=== PATIENT | female | born 1930 | race Caucasian/White ===

== ENCOUNTER → 2017-03-15 | Outpatient (CLI) | payer MEDICARE ==
--- NOTE | 2017-03-17 12:41 | EEG PRO FEE REPORT ---
EEG INTERPRETATION PATIENT NAME: KRYSTLE ESTRADA ROOM#: ORDER#: [id number] DATE OF STUDY: 03/15/2017 : 1930 REFERRING MD: ISAAK CUMMINGS M.D. DIAGNOSIS: Syncope REPORT The background activity consists of 6 to 7 Hz theta for the most part of medium to high voltage. No clear amplitude asymmetry is noted, or any further focal slowing is seen. Considering the stated age of 87, this record is felt to be within normal limits. No paroxysmal discharges are noted. IMPRESSION Normal EEG for age. INTERPRETING PHYSICIAN: SONIA MUNGUIA M.D. /: VELVET TT: [id number] ID: [id number] /: [id number] TD: [id number] JOB: [id number] cc:Paco ARTHUR M.D. >
== END ==
LOC: NEURO 07:58
PROVIDERS: ATTEND Family Medicine
DX: R55 Syncope and collapse (principal)
CPT/HCPCS: 95819

== ENCOUNTER 2018-12-30 14:46 | Inpatient (IN) | payer MEDICARE ==
--- NOTE | 2018-12-30 14:58 | ER Document Report ---
ED Medical Screen (RME) - General Chief Complaint: Dizziness Stated Complaint: DIZZY Time Seen by Provider: 12/30/18 14:56 Primary Care Provider: ISAAK CUMMINGS MD [Primary Care Provider] - Follow up as needed Mode of Arrival: Wheelchair Information source: Patient, Relative TRAVEL OUTSIDE OF THE [place] 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 Denies: Hx Pacemaker - Immunizations Hx Diphtheria, Pertussis, Tetanus Vaccination: Yes Physical Exam - Vital signs Vitals: Temp Pulse Resp BP Pulse Ox 98.0 F 90 17 141/55 H 98 12/30/18 14:51 12/30/18 14:51 12/30/18 14:51 12/30/18 14:51 12/30/18 14:51 Course - Vital Signs Vital signs: Temp Pulse Resp BP Pulse Ox 98.0 F 90 17 141/55 H 98 12/30/18 14:51 12/30/18 14:51 12/30/18 14:51 12/30/18 14:51 12/30/18 14:51 Doctor's Discharge - Discharge Referrals: ISAAK CUMMINGS MD [Primary Care Provider] - Follow up as needed
--- NOTE | 2018-12-30 15:20 | RADIOLOGY REPORT (SQ) ---
EXAM DESCRIPTION: CHEST 2 VIEWS COMPLETED DATE/TIME: 12/30/2018 3:08 pm REASON FOR STUDY: weakness COMPARISON: 11/04/2012 EXAM PARAMETERS: NUMBER OF VIEWS: two views TECHNIQUE: Digital Frontal and Lateral radiographic views of the chest acquired. RADIATION DOSE: NA LIMITATIONS: none FINDINGS: LUNGS AND PLEURA: No opacities, masses or pneumothorax. No pleural effusion. MEDIASTINUM AND HILAR STRUCTURES: No masses or contour abnormalities. HEART AND VASCULAR STRUCTURES: Heart normal size. No evidence for failure. BONES: Chronic scoliosis. HARDWARE: None in the chest. OTHER: No other significant finding. IMPRESSION: NO ACUTE RADIOGRAPHIC FINDING IN THE CHEST. TECHNICAL DOCUMENTATION: JOB ID: [id number] [employer]- All Rights Reserved Reading location - IP/workstation name: [email or web address]
[2018-12-30 16:08] LABS: ABSOLUTE BASOPHILS # (AUTO) 0.1 10^3/uL (0.0-0.2); ABSOLUTE EOSINOPHILS # (AUTO) 0.1 10^3/uL (0.0-0.6); ABSOLUTE LYMPHOCYTES (AUTO) 2.2 10^3/uL (0.5-4.7); ABSOLUTE MONOCYTES (AUTO) 0.6 10^3/uL (0.1-1.4); ABSOLUTE NEUT (AUTO) 4.1 10^3/uL (1.7-8.2); EOSINOPHILS % (AUTO) 1.3 % (0-6); HEMATOCRIT 37.4 % (36.0-47.0); HEMOGLOBIN 12.9 g/dL (12.0-15.5); LYMPHOCYTES % (AUTO) 31.5 % (13-45); MEAN CORPUSCULAR HGB CONC 34.4 g/dL (32.0-36.0); MEAN CORPUSCULAR VOLUME 81 fl (80-97); MONOCYTES % (AUTO) 8.1 % (3-13); PLATELET COUNT 206 10^3/uL (150-450); RED CELL DISTRIBUTION WIDTH 14.5 % (11.5-14.0); SEGMENTED NEUTROPHILS % (AUTO) 58.1 % (42-78); TOTAL CELLS COUNTED % (AUTO) 100 %; WHITE BLOOD COUNT 7.1 10^3/uL (4.0-10.5)
[2018-12-30 16:18] LABS: ALANINE AMINOTRANSFERASE 18 U/L (9-52); ALBUMIN 3.9 g/dL (3.5-5.0); ALKALINE PHOSPHATASE 62 U/L (38-126); ANION GAP 9 (5-19); ASPARTATE AMINO TRANSFERASE 21 U/L (14-36); BILIRUBIN,DIRECT 0.2 mg/dL (0.0-0.4); BILIRUBIN,TOTAL 0.5 mg/dL (0.2-1.3); BLOOD UREA NITROGEN 26 mg/dL (7-20); CALCIUM 10.3 mg/dL (8.4-10.2); CARBON DIOXIDE 27 mmol/L (22-30); CHLORIDE 95 mmol/L (98-107); CREATINE KINASE 68 U/L (30-135); GLUCOSE 84 mg/dL (75-110); SODIUM 131.2 mmol/L (137-145); TOTAL PROTEIN 6.4 g/dL (6.3-8.2)
--- NOTE | 2018-12-30 16:26 | ER Document Report ---
ED General - General Chief Complaint: Dizziness Stated Complaint: DIZZY Time Seen by Provider: 12/30/18 14:56 Primary Care Provider: ISAAK ROSADO MD [Primary Care Provider] - Follow up as needed Mode of Arrival: Wheelchair Notes: Very pleasant 88-year-old female with hypertension presents to emergency department for syncopal episode after standing up out of bed. It was unwitnessed. She states she got out of bed and next thing she knew she woke up on the floor. She states that this is never happened to her before. Patient is not on any anticoagulation. Patient denies any recent illness. Patient denies fever, chills, shortness of breath or chest pain, nausea, vomiting, diarrhea, currently denies lightheadedness or dizziness, denies headache, denies any extremity weakness or paresthesias, denies any urinary symptoms. TRAVEL OUTSIDE OF THE [place] IN LAST 30 DAYS: No - Related Data Allergies/Adverse Reactions: Penicillins Allergy (Verified 12/30/18 14:50) Past Medical History - General Information source: Patient, Relative - Social History Smoking Status: Never Smoker Chew tobacco use (# tins/day): No Frequency of alcohol use: None Drug Abuse: None Family History: Reviewed & Not Pertinent Patient has suicidal ideation: No Patient has homicidal ideation: No - Past Medical History Cardiac Medical History: Reports: Hx Hypertension Pulmonary Medical History: Denies: Hx Tuberculosis Renal/ Medical History: Denies: Hx Peritoneal Dialysis Musculoskeletal Medical History: Reports Hx Arthritis Past Surgical History: Reports: Hx Appendectomy, Hx Tonsillectomy. Denies: Hx Pacemaker - Immunizations Hx Diphtheria, Pertussis, Tetanus Vaccination: Yes Review of Systems - Review of Systems Constitutional: See HPI EENT: No symptoms reported, See HPI Cardiovascular: See HPI Respiratory: See HPI Gastrointestinal: See HPI Genitourinary: See HPI Female Genitourinary: No symptoms reported Musculoskeletal: No symptoms reported Skin: No symptoms reported Hematologic/Lymphatic: No symptoms reported Neurological/Psychological: No symptoms reported Physical Exam - Vital signs Vitals: Temp Pulse Resp BP Pulse Ox 98.0 F 90 17 141/55 H 98 12/30/18 14:51 12/30/18 14:51 12/30/18 14:51 12/30/18 14:51 12/30/18 14:51 - Notes Notes: PHYSICAL EXAMINATION: Reviewed vital signs and charting by RN GENERAL: Alert, interacts well. No acute distress. HEAD: Normocephalic, atraumatic. EYES: Pupils equal, round, and reactive to light. Extraocular movements intact. ENT: Oral mucosa moist, tongue midline. NECK: Full range of motion. Supple. Trachea midline. LUNGS: Clear to auscultation bilaterally, no wheezes, rales, or rhonchi. No respiratory distress. HEART: Regular rate and rhythm. No murmur ABDOMEN: soft, non-tender. Non-distended. Bowel sounds present in all 4 quadrants. no McBurney's point tenderness, no Zamudio sign. EXTREMITIES: Moves all 4 extremities spontaneously. No edema, No cyanosis. Strength 5/5 x 4 extremities, blade boner strength 5/5, 5/5 dorsal and plantar flexion. NEUROLOGICAL: Alert and oriented x3. Normal speech. No focal neuro deficits, normal neurologic exam. PSYCH: Normal affect, normal mood. SKIN: Warm, dry, normal turgor. No rashes or lesions noted. Course - Re-evaluation Re-evalutation: 12/30/18 16:25 Very well-appearing 88-year-old female with syncopal episode. Workup initiated. CT head without contrast added. 12/30/18 17:44 CT negative for acute stroke or intracranial bleed. Lab work unremarkable. Discussed case with Dr. Nguyen. 12/30/18 18:25 Because patient is 88 years old and had an unwitnessed syncopal episode at her house, and has been seen in [address] Ashton recommended to call Dr. Rosado. I did called him and presented the patient to him. He stated that he would have her follow-u in the office on Tuesday. Discussed patient again with Dr. Nguyen and concern was voiced due to patient's age and risk for . Dr. Nguyen then called him and explained his concerns and my concerns. Dr. Rosado agreed to admit patient for full admission on telemetry. 12/30/18 18:04 12/30/18 18:14 - Vital Signs Vital signs: Temp Pulse Resp BP Pulse Ox 98.0 F 90 14 138/57 H 99 12/30/18 14:51 12/30/18 14:51 12/30/18 16:26 12/30/18 16:26 12/30/18 16:26 - Laboratory Result Diagrams: 12/30/18 15:35 12/30/18 15:35 Laboratory results interpreted by me: 12/30/18 12/30/18 12/30/18 15:35 15:35 17:50 RDW 14.5 H Sodium 131.2 L Chloride 95 L BUN 26 H Creatinine 1.41 H Est GFR ( Amer) 43 L Est GFR (Non-Af Amer) 35 L Calcium 10.3 H Urine Blood SMALL H Ur Leukocyte Esterase LARGE H Discharge - Discharge Clinical Impression: Dehydration, Hyponatremia Syncope Qualifiers: Syncope type: unspecified Qualified Code(s): R55 - Syncope and collapse Urinary tract infection Qualifiers: Urinary tract infection type: acute cystitis Hematuria presence: with hematuria Qualified Code(s): N30.01 - Acute cystitis with hematuria Condition: Good Disposition: ADMITTED INPATIENT Admitting Provider: Ashlee Unit Admitted: Telemetry Additional Instructions: You were seen today after an episode of passing out. Your EKG here is normal. At this time, we do not feel that your episode of passing out was from any life- threatening cause. Please drink plenty of fluids over the next several days. Return to emergency department if you have any further episodes of syncope, headache, weakness, numbness, chest pain, or shortness of breath. Please follow up closely with your primary care physician. Referrals: ISAAK ROSADO MD [Primary Care Provider] - Follow up as needed
[2018-12-30 16:29] LABS: CREATINE KINASE MB 1.68 ng/mL (<4.55)
[2018-12-30 16:31] LABS: TROPONIN I < 0.012 ng/mL
--- NOTE | 2018-12-30 16:31 | EKG REPORT ---
SEVERITY:- NORMAL ECG - SINUS RHYTHM : Confirmed by: Moni Alcantara 30-Dec-2018 16:31:35
--- NOTE | 2018-12-30 17:33 | RADIOLOGY REPORT (SQ) ---
EXAM DESCRIPTION: CT HEAD WITHOUT COMPLETED DATE/TIME: 12/30/2018 5:21 pm REASON FOR STUDY: syncope COMPARISON: 04/23/2010. TECHNIQUE: Axial images acquired through the brain without intravenous contrast. Images reviewed wi th bone, brain and subdural windows. Additional sagittal and coronal reconstructions were generated. Images stored on PACS. All CT scanners at this facility use dose modulation, iterative reconstruction, and/or weight based d osing when appropriate to reduce radiation dose to as low as reasonably achievable (ALARA). [facility]: Dose Right [facility]: CareDose [facility]: Dose Right [facility]: Teradose 4D [facility]: Smart [place] [employer] [place] RADIATION DOSE: CT Rad equipment meets quality standard of care and radiation dose reduction techniq ues were employed. CTDIvol: 53.2 mGy. DLP: 991 mGy-cm.mGy. LIMITATIONS: None. FINDINGS: VENTRICLES: Prominent. CEREBRUM: No masses. No hemorrhage. No midline shift. Areas of low density in the white matter mos t likely due to chronic micro-vascular ischemic change. No evidence for acute infarction. CEREBELLUM: No masses. No hemorrhage. No alteration of density. No evidence for acute infarction. EXTRAAXIAL SPACES: Age-related involutional change. No fluid collections. No masses. ORBITS AND GLOBE: No intra- or extraconal masses. Normal contour of globe without masses. CALVARIUM: No fracture. PARANASAL SINUSES: No fluid or mucosal thickening. SOFT TISSUES: No mass or hematoma. OTHER: No other significant finding. IMPRESSION: CHRONIC CHANGES OF ATROPHY AND MICROVASCULAR ISCHEMIA. NO ACUTE PROCESS. EVIDENCE OF ACUTE STROKE: NO. TECHNICAL DOCUMENTATION: JOB ID: [id number] Quality ID # [id number]: Final reports with documentation of one or more dose reduction techniques (e.g., Au tomated exposure control, adjustment of the mA and/or kV according to patient size, use of iterative reconstruction technique) 2010 [employer]- All Rights Reserved Reading location - IP/workstation name: [email or web address]
[2018-12-30] MEDS ORDERED: NORMAL SALINE 1000 ML 500 ML IV ONE (18:03)
[2018-12-30 18:09] LABS: APPEARANCE,URINE CLOUDY; BILIRUBIN,URINE NEGATIVE (NEGATIVE); COLOR,URINE YELLOW; GLUCOSE, URINE NEGATIVE (NEGATIVE); KETONES,URINE NEGATIVE (NEGATIVE); LEUKOCYTE ESTERASE,URINE LARGE (NEGATIVE); NITRITE,URINE NEGATIVE (NEGATIVE); PROTEIN,URINE NEGATIVE (NEGATIVE); URINE SPECIFIC GRAVITY 1.009; UROBILINOGEN,URINE NEGATIVE mg/dL (<2.0)
[2018-12-30] MEDS ORDERED: CEFTRIAXONE 1 GM/D5W RTU 1 GM/50 ML RTUPB IV ONE (19:17)
[2018-12-30] MEDS: 1/2 NORMAL SALINE 1,000 ML IV PRN (20:24)
[2018-12-31 06:06] LABS: ANION GAP 6 (5-19); BLOOD UREA NITROGEN 23 mg/dL (7-20); CALCIUM 9.8 mg/dL (8.4-10.2); CARBON DIOXIDE 28 mmol/L (22-30); CHLORIDE 100 mmol/L (98-107); GLUCOSE 78 mg/dL (75-110); POTASSIUM 4.7 mmol/L (3.6-5.0); SODIUM 134.1 mmol/L (137-145)
--- NOTE | 2018-12-31 07:21 | PDOC H&P ---
History of Present Illness Admission Date/PCP: 12/30/18 18:41 ISAAK CUMMINGS MD Patient complains of: passing out History of Present Illness: KRYSTLE ESTRADA is a 88 year old female on lisinoprilHCT for bp and b12 for sensor ataxia. She got out of bed and woke up on the floor. Past Medical History Cardiac Medical History: Reports: Hypertension Pulmonary Medical History: Denies: Tuberculosis EENT Medical History: Reports: None Neurological Medical History: Reports: Other - peripheral neuropathy Endocrine Medical History: Reports: None Renal/ Medical History: Reports: None Malignancy Medical History: Reports: None GI Medical History: Reports: None Musculoskeltal Medical History: Reports: Arthritis Skin Medical History: Reports: None Psychiatric Medical History: Reports: None Traumatic Medical History: Reports: None Hematology: Reports: Anemia Infectious Medical History: Reports: None Past Surgical History Past Surgical History: Reports: Appendectomy, Tonsillectomy Denies: Pacemaker Social History Information Source: Dr. Helms Lives with: Family Smoking Status: Never Smoker Frequency of Alcohol Use: None Hx Recreational Drug Use: No Drugs: None Hx Prescription Drug Abuse: No - Advance Directive Resuscitation Status: Full Code Family History Family History: Reviewed & Not Pertinent Parental Family History Reviewed: Yes Children Family History Reviewed: Yes Sibling(s) Family History Reviewed.: Yes Medication/Allergy Home Medications: Mcgregor-3/Dha/Epa/Fish Oil [Fish Oil 1,000 mg Softgel] 1 each PO DAILY 11/04/12 Cyanocobalamin (Vitamin B-12) [Vitamin B-12 1000 Mcg Tablet] 1 tab PO DAILY 12/31/18 Lisinopril/Hydrochlorothiazide [Lisinopril-Hctz 20-25 mg Tab] 1 DAILY 12/31/18 Allergies/Adverse Reactions: Penicillins Allergy (Verified 12/30/18 14:50) Review of Systems ROS unobtainable: Due to mental status Constitutional: ABSENT: fever(s), headache(s), weight loss Nose, Mouth, and Throat: ABSENT: sore throat Cardiovascular: ABSENT: chest pain, dyspnea on exertion, orthropnea Respiratory: ABSENT: cough Gastrointestinal: ABSENT: abdominal pain, constipation, diarrhea, hematochezia, vomiting Genitourinary: ABSENT: dysuria, hematuria Integumentary: ABSENT: rash Neurological: PRESENT: lack of coordination Physical Exam Vital Signs: Temp Pulse Resp BP Pulse Ox 97.7 F 111 H 20 171/53 H 100 12/31/18 00:00 12/31/18 02:00 12/31/18 00:00 12/31/18 00:00 12/31/18 00:00 Intake & Output 12/29/18 12/30/18 12/31/18 07:59 07:59 07:59 Intake Total 550 Balance 550 Weight 128 lb 11.999 oz General appearance: PRESENT: no acute distress Mouth exam: PRESENT: dry mucosa, neck supple Neck exam: ABSENT: lymphadenopathy, tenderness, thyromegaly, tracheal deviation Respiratory exam: PRESENT: clear to auscultation archie Cardiovascular exam: ABSENT: diastolic murmur, irregular rhythm, systolic murmur GI/Abdominal exam: ABSENT: mass, organolmegaly, tenderness Extremities exam: PRESENT: pedal edema - trace Neurological exam: ABSENT: oriented to time, oriented to situation Psychiatric exam: PRESENT: appropriate affect Results Laboratory Results: 12/30/18 15:35 Abnormal - 24 hr 12/30/18 12/30/18 12/30/18 15:35 15:35 17:50 RDW 14.5 H Sodium 131.2 L Chloride 95 L BUN 26 H Creatinine 1.41 H Est GFR ( Amer) 43 L Est GFR (Non-Af Amer) 35 L Calcium 10.3 H Urine Blood SMALL H Ur Leukocyte Esterase LARGE H 12/31/18 05:03 RDW Sodium 134.1 L Chloride BUN 23 H Creatinine Est GFR ( Amer) 52 L Est GFR (Non-Af Amer) 43 L Calcium Urine Blood Ur Leukocyte Esterase Impressions: Chest X-Ray 12/30/18 14:56 IMPRESSION: NO ACUTE RADIOGRAPHIC FINDING IN THE CHEST. Head CT 12/30/18 16:15 IMPRESSION: CHRONIC CHANGES OF ATROPHY AND MICROVASCULAR ISCHEMIA. NO ACUTE PROCESS. EVIDENCE OF ACUTE STROKE: NO. Assessment & Plan - Diagnosis (1) Syncope Qualifiers: Syncope type: unspecified Qualified Code(s): R55 - Syncope and collapse (2) Urinary tract infection Qualifiers: Urinary tract infection type: acute cystitis Hematuria presence: with hematuria Qualified Code(s): N30.01 - Acute cystitis with hematuria Is this a current diagnosis for this admission?: Yes Plan: already on ceftri (3) Acute kidney injury Is this a current diagnosis for this admission?: Yes Plan: ivf (4) B12 neuropathy Is this a current diagnosis for this admission?: Yes Plan: level & IF antibody - Inpatient Certification Based on my medical assessment, after consideration of the patient's comorbidities, presenting symptoms, or acuity I expect that the services needed warrant INPATIENT care.: Yes I certify that my determination is in accordance with my understanding of Medicare's requirements for reasonable and necessary INPATIENT services [42 CFR 412.3e].: Yes Medical Necessity: Need Close Monitoring Due to Risk of Patient Decompensation, Need For IV Fluids, Need For Continuous Telemetry Monitoring, Need for IV Antibiotics, Risk of Complication if Not Cared For in Hospital, Risk of Diagnosis Which Will Require Inpatient Eval/Care/Monitoring
[2018-12-31] MEDS: ENOXAPARIN SODIUM INJ 30 MG/0.3 ML DISP.SYRIN SUBCUT SCH (09:18)
[2018-12-31] MEDS: CEFTRIAXONE 1 GM/D5W RTU 1 GM/50 ML RTUPB IV SCH (09:18)
[2018-12-31] MEDS: 1/2 NORMAL SALINE 1,000 ML IV PRN (15:19)
[2019-01-01] MEDS: 1/2 NORMAL SALINE 1,000 ML IV PRN ×3 (01:05→21:03)
[2019-01-01 06:38] LABS: ANION GAP 5 (5-19); BLOOD UREA NITROGEN 17 mg/dL (7-20); CALCIUM 9.4 mg/dL (8.4-10.2); CARBON DIOXIDE 28 mmol/L (22-30); CHLORIDE 101 mmol/L (98-107); GLUCOSE 81 mg/dL (75-110); POTASSIUM 4.8 mmol/L (3.6-5.0); SODIUM 133.7 mmol/L (137-145)
--- NOTE | 2019-01-01 07:33 | PDOC PROGRESS REPORT ---
Subjective Progress Note for:: 01/01/19 Subjective:: no complaints Reason For Visit: UTI,ARAM,SYNCOPE Physical Exam Vital Signs: Temp Pulse Resp BP Pulse Ox 98.6 F 79 18 127/54 H 97 01/01/19 03:43 01/01/19 03:43 01/01/19 03:43 01/01/19 03:43 01/01/19 03:43 Intake & Output 12/30/18 12/31/18 01/01/19 07:59 07:59 07:59 Intake Total 1750 1735 Output Total 1000 2100 Balance 750 -365 Weight 128 lb 11.999 oz 130 lb 4.691 oz General appearance: PRESENT: no acute distress Respiratory exam: PRESENT: clear to auscultation archie Cardiovascular exam: ABSENT: diastolic murmur, irregular rhythm, systolic murmur GI/Abdominal exam: ABSENT: mass, organolmegaly, tenderness Extremities exam: PRESENT: pedal edema - trace Neurological exam: PRESENT: oriented to situation Psychiatric exam: PRESENT: appropriate affect Results Laboratory Results: 12/30/18 15:35 01/01/19 05:03 12/31/18 01/01/19 05:03 05:03 Sodium 133.7 L Potassium 4.8 Chloride 101 Carbon Dioxide 28 Anion Gap 5 BUN 17 Creatinine 1.18 Est GFR ( Amer) 53 L Est GFR (Non-Af Amer) 43 L Glucose 81 Calcium 9.4 Vitamin B12 > 1000.0 H 12/30/18 12/30/18 15:35 15:35 Creatine Kinase 68 CK-MB (CK-2) 1.68 Troponin I < 0.012 Impressions: Chest X-Ray 12/30/18 14:56 IMPRESSION: NO ACUTE RADIOGRAPHIC FINDING IN THE CHEST. Head CT 12/30/18 16:15 IMPRESSION: CHRONIC CHANGES OF ATROPHY AND MICROVASCULAR ISCHEMIA. NO ACUTE PROCESS. EVIDENCE OF ACUTE STROKE: NO. Assessment & Plan - Diagnosis (1) Syncope Qualifiers: Syncope type: unspecified Qualified Code(s): R55 - Syncope and collapse Is this a current diagnosis for this admission?: Yes Plan: no recurrance or dysrrhythmia on monitor. BP low enough off lisinoprilHCT. (2) Urinary tract infection Qualifiers: Urinary tract infection type: acute cystitis Hematuria presence: with hematuria Qualified Code(s): N30.01 - Acute cystitis with hematuria Is this a current diagnosis for this admission?: Yes Plan: d3 ceftri (3) Acute kidney injury Is this a current diagnosis for this admission?: Yes Plan: bun17 [id number]. Cr was lower before. (4) B12 neuropathy Is this a current diagnosis for this admission?: Yes - Inpatient Certification Medical Necessity: Significant Comorbidiites Make Outpatient Treatment Too Risky, Need Close Monitoring Due to Risk of Patient Decompensation, Need For IV Fluids, Need For Continuous Telemetry Monitoring, Need for IV Antibiotics, Risk of Complication if Not Cared For in Hospital, Risk of Diagnosis Which Will Require Inpatient Eval/Care/Monitoring
[2019-01-01] MEDS: ENOXAPARIN SODIUM INJ 30 MG/0.3 ML DISP.SYRIN SUBCUT SCH (09:18)
[2019-01-01] MEDS: CEFTRIAXONE 1 GM/D5W RTU 1 GM/50 ML RTUPB IV SCH (09:18)
[2019-01-01 20:36] LABS: ABSOLUTE BASOPHILS # (AUTO) 0.1 10^3/uL (0.0-0.2); ABSOLUTE EOSINOPHILS # (AUTO) 0.1 10^3/uL (0.0-0.6); ABSOLUTE MONOCYTES (AUTO) 0.7 10^3/uL (0.1-1.4); BASOPHILS % (AUTO) 0.9 % (0-2); EOSINOPHILS % (AUTO) 0.7 % (0-6); HEMATOCRIT 31.6 % (36.0-47.0); LYMPHOCYTES % (AUTO) 25.8 % (13-45); MEAN CORPUSCULAR HEMOGLOBIN 28.1 pg (27.0-33.4); MEAN CORPUSCULAR HGB CONC 34.6 g/dL (32.0-36.0); MEAN CORPUSCULAR VOLUME 81 fl (80-97); MONOCYTES % (AUTO) 8.8 % (3-13); PLATELET COUNT 157 10^3/uL (150-450); SEGMENTED NEUTROPHILS % (AUTO) 63.8 % (42-78); TOTAL CELLS COUNTED % (AUTO) 100 %; WHITE BLOOD COUNT 7.8 10^3/uL (4.0-10.5)
[2019-01-02 05:49] LABS: ANION GAP 6 (5-19); BLOOD UREA NITROGEN 15 mg/dL (7-20); CALCIUM 9.7 mg/dL (8.4-10.2); CARBON DIOXIDE 24 mmol/L (22-30); CHLORIDE 104 mmol/L (98-107); GLUCOSE 87 mg/dL (75-110); POTASSIUM 4.4 mmol/L (3.6-5.0); SODIUM 134.3 mmol/L (137-145)
--- NOTE | 2019-01-02 08:30 | PDOC PROGRESS REPORT ---
Subjective Progress Note for:: 01/02/19 Subjective:: wants home. Rectal bleeding yesterday. Reason For Visit: UTI,ARAM,SYNCOPE Physical Exam Vital Signs: Temp Pulse Resp BP Pulse Ox 98.6 F 93 17 152/58 H 94 01/01/19 23:50 01/02/19 02:00 01/01/19 20:00 01/01/19 23:50 01/01/19 23:50 Intake & Output 01/01/19 01/02/19 01/03/19 07:59 07:59 07:59 Intake Total 1735 3627 Output Total 2100 2700 Balance -365 927 Weight 130 lb 4.691 oz 131 lb 9.855 oz General appearance: PRESENT: no acute distress Respiratory exam: PRESENT: clear to auscultation archie Cardiovascular exam: PRESENT: diastolic murmur. ABSENT: irregular rhythm, systolic murmur Murmur grade: 1 GI/Abdominal exam: ABSENT: organolmegaly, tenderness Extremities exam: ABSENT: pedal edema Neurological exam: PRESENT: alert Psychiatric exam: PRESENT: anxious Results Laboratory Results: 01/01/19 20:15 01/02/19 05:04 01/01/19 01/02/19 20:15 05:04 WBC 7.8 RBC 3.90 Hgb 11.0 L Hct 31.6 L MCV 81 MCH 28.1 MCHC 34.6 RDW 14.0 Plt Count 157 Seg Neutrophils % 63.8 Lymphocytes % 25.8 Monocytes % 8.8 Eosinophils % 0.7 Basophils % 0.9 Absolute Neutrophils 5.0 Absolute Lymphocytes 2.0 Absolute Monocytes 0.7 Absolute Eosinophils 0.1 Absolute Basophils 0.1 Sodium 134.3 L Potassium 4.4 Chloride 104 Carbon Dioxide 24 Anion Gap 6 BUN 15 Creatinine 1.08 Est GFR ( Amer) 58 L Est GFR (Non-Af Amer) 48 L Glucose 87 Calcium 9.7 Impressions: Chest X-Ray 12/30/18 14:56 IMPRESSION: NO ACUTE RADIOGRAPHIC FINDING IN THE CHEST. Head CT 12/30/18 16:15 IMPRESSION: CHRONIC CHANGES OF ATROPHY AND MICROVASCULAR ISCHEMIA. NO ACUTE PROCESS. EVIDENCE OF ACUTE STROKE: NO. Assessment & Plan - Diagnosis (1) Bleeding per rectum Is this a current diagnosis for this admission?: Yes Plan: hct down 5. Consulted Dr Rodríguez for possible Cscop. (2) Urinary tract infection Qualifiers: Urinary tract infection type: acute cystitis Hematuria presence: with hematuria Qualified Code(s): N30.01 - Acute cystitis with hematuria Is this a current diagnosis for this admission?: Yes Plan: d4 ceftri (3) Syncope Qualifiers: Syncope type: unspecified Qualified Code(s): R55 - Syncope and collapse Is this a current diagnosis for this admission?: Yes Plan: sinus with pvc (4) Acute kidney injury Is this a current diagnosis for this admission?: Yes Plan: creatinine down (5) B12 neuropathy Is this a current diagnosis for this admission?: Yes Plan: level good - Inpatient Certification Medical Necessity: Significant Comorbidiites Make Outpatient Treatment Too Risky, Need Close Monitoring Due to Risk of Patient Decompensation, Need For IV Fluids, Need For Continuous Telemetry Monitoring, Risk of Complication if Not Cared For in Hospital, Risk of Diagnosis Which Will Require Inpatient Eval/Care/Monitoring
[2019-01-02] MEDS: CEFTRIAXONE 1 GM/D5W RTU 1 GM/50 ML RTUPB IV SCH (10:37)
[2019-01-02] MEDS: 1/2 NORMAL SALINE 1,000 ML IV PRN ×2 (10:37→20:20)
--- NOTE | 2019-01-02 13:15 | PDOC CONSULTATION ---
Consultation Consult Date: 01/02/19 Attending physician:: MILES CANTU Consult reason:: rectal bleeding History of Present Illness Admission Date/PCP: 12/30/18 18:41 ISAAK CUMMINGS MD History of Present Illness: KRYSTLE ESTRADA is a 88 year old female I have been asked to see this patient for rectal bleeding patient admitted for a possible neuropathy patient cannot remember having a colonoscopy in the past patient had rectal bleeding that happened in the hospital no previous episodes patient will need a colonoscopy done patient willing to have done denies any chest pain or SOB Past Medical History Cardiac Medical History: Reports: Hypertension Pulmonary Medical History: Denies: Tuberculosis EENT Medical History: Reports: None Neurological Medical History: Reports: Other - peripheral neuropathy Endocrine Medical History: Reports: None Renal/ Medical History: Reports: None Malignancy Medical History: Reports: None GI Medical History: Reports: None Musculoskeltal Medical History: Reports: Arthritis Skin Medical History: Reports: None Psychiatric Medical History: Reports: None Traumatic Medical History: Reports: None Hematology: Reports: Anemia Infectious Medical History: Reports: None Past Surgical History Past Surgical History: Reports: Appendectomy, Tonsillectomy Denies: Pacemaker Social History Lives with: Family Smoking Status: Never Smoker Frequency of Alcohol Use: None Hx Recreational Drug Use: No Drugs: None Hx Prescription Drug Abuse: No - Advance Directive Resuscitation Status: Full Code Family History Family History: Reviewed & Not Pertinent Parental Family History Reviewed: Yes Children Family History Reviewed: Unknown Sibling(s) Family History Reviewed.: Unknown Medication/Allergy Home Medications: [place]-3/Dha/Epa/Fish Oil [Fish Oil 1,000 mg Softgel] 1 each PO DAILY 11/04/12 Cyanocobalamin (Vitamin B-12) [Vitamin B-12 1000 Mcg Tablet] 1 tab PO DAILY 12/31/18 Lisinopril/Hydrochlorothiazide [Lisinopril-Hctz 20-25 mg Tab] 1 tab PO DAILY 12/31/18 Allergies/Adverse Reactions: Penicillins Allergy (Verified 12/30/18 14:50) Review of Systems Constitutional: ABSENT: fever(s), headache(s), night sweats, weakness Eyes: ABSENT: visual disturbances Ears: ABSENT: hearing changes Nose, Mouth, and Throat: ABSENT: mouth pain, sore throat Cardiovascular: ABSENT: edema, orthropnea Respiratory: ABSENT: dyspnea, hemoptysis Gastrointestinal: PRESENT: hematochezia. ABSENT: nausea, vomiting Genitourinary: ABSENT: dysuria, hematuria Musculoskeletal: ABSENT: deformity, joint swelling Neurological: ABSENT: syncope, tingling, tremor(s), vertigo Endocrine: ABSENT: polydipsia, polyphagia, polyuria Hematologic/Lymphatic: ABSENT: easy bruising Physical Exam Vital Signs: Temp Pulse Resp BP Pulse Ox 98.6 F 93 17 152/58 H 94 01/01/19 23:50 01/02/19 02:00 01/01/19 20:00 01/01/19 23:50 01/01/19 23:50 Intake & Output 01/01/19 01/02/19 01/03/19 06:59 06:59 06:59 Intake Total 1735 3627 1050 Output Total 2100 1750 950 Balance -365 1877 100 Weight 59.1 kg 59.7 kg General appearance: PRESENT: no acute distress, well-developed, well-nourished Head exam: PRESENT: atraumatic, normocephalic Eye exam: PRESENT: EOMI, PERRLA. ABSENT: nystagmus, periorbital swelling, scler al icterus Mouth exam: PRESENT: moist, neck supple Throat exam: ABSENT: tonsillar exudate, tonsillogmegaly Neck exam: ABSENT: meningismus, tenderness, thyromegaly Respiratory exam: PRESENT: symmetrical, unlabored. ABSENT: tachypnea, wheezes Cardiovascular exam: PRESENT: +S1, +S2 GI/Abdominal exam: PRESENT: soft. ABSENT: rebound, rigid, tenderness Extremities exam: ABSENT: joint swelling Neurological exam: PRESENT: oriented to time, oriented to situation, CN II-XII grossly intact Focused psych exam: ABSENT: restlessness Skin exam: PRESENT: normal color. ABSENT: mottled, pallor, urticaria, vesicles Results Laboratory Results: 01/01/19 20:15 01/02/19 05:04 01/01/19 01/02/19 20:15 05:04 WBC 7.8 RBC 3.90 Hgb 11.0 L Hct 31.6 L MCV 81 MCH 28.1 MCHC 34.6 RDW 14.0 Plt Count 157 Seg Neutrophils % 63.8 Lymphocytes % 25.8 Monocytes % 8.8 Eosinophils % 0.7 Basophils % 0.9 Absolute Neutrophils 5.0 Absolute Lymphocytes 2.0 Absolute Monocytes 0.7 Absolute Eosinophils 0.1 Absolute Basophils 0.1 Sodium 134.3 L Potassium 4.4 Chloride 104 Carbon Dioxide 24 Anion Gap 6 BUN 15 Creatinine 1.08 Est GFR ( Amer) 58 L Est GFR (Non-Af Amer) 48 L Glucose 87 Calcium 9.7 12/30/18 12/30/18 15:35 15:35 Creatine Kinase 68 CK-MB (CK-2) 1.68 Troponin I < 0.012 Impressions: Chest X-Ray 12/30/18 14:56 IMPRESSION: NO ACUTE RADIOGRAPHIC FINDING IN THE CHEST. Head CT 12/30/18 16:15 IMPRESSION: CHRONIC CHANGES OF ATROPHY AND MICROVASCULAR ISCHEMIA. NO ACUTE PROCESS. EVIDENCE OF ACUTE STROKE: NO. Assessment & Plan - Diagnosis (1) Bleeding per rectum Is this a current diagnosis for this admission?: Yes Plan: patient will need a colonoscopy Risks, benefits and alternatives are explained to the patient in detail further recommendations to follow she is willing to schedule - Time Time Spent: 50 to 70 Minutes
[2019-01-02] MEDS ORDERED: GLUCAGON,HUMAN RECOMB 1 MG INJ SUBCUT PRN (19:45)
[2019-01-02] MEDS ORDERED: DEXTROSE 50%-WATER 25 GM/50 ML DISP.SYRIN IV PRN ×2 (19:45)
[2019-01-02] MEDS ORDERED: DEXTROSE 40% GEL 15 GM TUBE PO PRN ×2 (19:45)
[2019-01-02] MEDS ORDERED: PEG 3350/NA SULF,BICARB,CL/KCL 4000 ML PO ONE (20:30)
[2019-01-03] MEDS: 1/2 NORMAL SALINE 1,000 ML IV PRN ×2 (05:53→09:01)
[2019-01-03 07:14] LABS: INTRINSIC FACTOR ANTIBODY 1.9 AU/mL (0.0-1.1)
--- NOTE | 2019-01-03 08:01 | PDOC PROGRESS REPORT ---
Subjective Progress Note for:: 01/03/19 Subjective:: ok Reason For Visit: UTI,ARAM,SYNCOPE Physical Exam Vital Signs: Temp Pulse Resp BP Pulse Ox 98.7 F 76 19 147/55 H 96 01/03/19 00:00 01/03/19 02:00 01/03/19 00:00 01/03/19 00:00 01/03/19 00:00 Intake & Output 01/01/19 01/02/19 01/03/19 07:59 07:59 07:59 Intake Total 1735 4627 3827 Output Total 2100 2700 3400 Balance -365 1927 427 Weight 130 lb 4.691 oz 131 lb 9.855 oz 131 lb 13.383 oz General appearance: PRESENT: no acute distress Respiratory exam: PRESENT: clear to auscultation archie Cardiovascular exam: PRESENT: diastolic murmur. ABSENT: irregular rhythm, systolic murmur Murmur grade: 1 GI/Abdominal exam: ABSENT: mass, organolmegaly, tenderness Extremities exam: ABSENT: pedal edema Neurological exam: PRESENT: oriented to situation Psychiatric exam: PRESENT: appropriate affect Results Laboratory Results: 01/01/19 20:15 01/02/19 05:04 Impressions: Chest X-Ray 12/30/18 14:56 IMPRESSION: NO ACUTE RADIOGRAPHIC FINDING IN THE CHEST. Head CT 12/30/18 16:15 IMPRESSION: CHRONIC CHANGES OF ATROPHY AND MICROVASCULAR ISCHEMIA. NO ACUTE PROCESS. EVIDENCE OF ACUTE STROKE: NO. Assessment & Plan - Diagnosis (1) Bleeding per rectum Is this a current diagnosis for this admission?: Yes Plan: colonoscopy today. ? home in am. (2) Urinary tract infection Qualifiers: Urinary tract infection type: acute cystitis Hematuria presence: with hematuria Qualified Code(s): N30.01 - Acute cystitis with hematuria Is this a current diagnosis for this admission?: Yes (3) Syncope Qualifiers: Syncope type: unspecified Qualified Code(s): R55 - Syncope and collapse Is this a current diagnosis for this admission?: Yes (4) Acute kidney injury Is this a current diagnosis for this admission?: Yes (5) B12 neuropathy Is this a current diagnosis for this admission?: Yes - Inpatient Certification Medical Necessity: Significant Comorbidiites Make Outpatient Treatment Too Risky, Need Close Monitoring Due to Risk of Patient Decompensation, Need For IV Fluids, Need For Continuous Telemetry Monitoring, Risk of Complication if Not Cared For in Hospital, Risk of Diagnosis Which Will Require Inpatient Eval/Care/Monitoring
[2019-01-03] MEDS: CEFTRIAXONE 1 GM/D5W RTU 1 GM/50 ML RTUPB IV SCH (09:01)
[2019-01-03] MEDS ORDERED: PROPOFOL INJ 200 MG/20 ML VIAL IV ONE (09:20)
[2019-01-03] MEDS ORDERED: FENTANYL CITRATE INJ/PF 100 MCG/2 ML AMPUL IV PRN ×3 (09:58)
[2019-01-03] MEDS ORDERED: MEPERIDINE HCL/PF INJ 25 MG/1 ML DISP.SYRIN IV PRN (09:58)
[2019-01-03] MEDS ORDERED: PROMETHAZINE HCL INJ 25 MG/1 ML VIAL IV PRN (09:58)
[2019-01-03] MEDS ORDERED: DIPHENHYDRAMINE HCL 50 MG/ML VIAL IV PRN (09:58)
[2019-01-03] MEDS ORDERED: ONDANSETRON HCL INJ/PF 4 MG/2 ML SDV IV PRN (09:58)
--- NOTE | 2019-01-03 10:15 | Operative Report ---
Operative Report DATE OF SURGERY: 01/03/19 Operative Report: The risks, benefits and alternatives of the procedure including the risk of bleeding, perforation requiring surgery have been explained to the patient in detail and informed consent has been obtained. Patient is brought back to the operating room and placed in the left, lateral decubital position. Timeout was called. Propofol medication is administered. Rectal examination is done which did not reveal any masses tears or fissures. An Olympus videoscope was introduced into the patient's rectum. The scope was then carefully advanced all the way to the cecum. Cecum was identified by the usual anatomical landmarks including the ileocecal valve as well as the appendiceal office. Photodocumentation was obtained. Scope was then sequentially pulled back via the various segments of the colon including the ascending colon, hepatic flexure, transverse colon, splenic flexure, descending colon and finally into the rectosigmoid portions of the colon. Retroflexion maneuver was performed. PREOPERATIVE DIAGNOSIS: Rectal bleeding POSTOPERATIVE DIAGNOSIS: Random biopsies taken on the right side of the colon rule out collagenous colitis. Incidental polyp noted in the sigmoid area removed via snare polypectomy and retrieved. Diverticulosis without any evidence of recent bleeding or diverticulitis. Internal hemorrhoids likely the causative factor for the patient's rectal bleeding OPERATION: Colonoscopy with snare polypectomy. Colonoscopy with biopsy SURGEON: MILES CANTU ANESTHESIA: LMAC TISSUE REMOVED OR ALTERED: As noted above COMPLICATIONS: None. ESTIMATED BLOOD LOSS: None. INTRAOPERATIVE FINDINGS: As noted above. PROCEDURE: Patient tolerated the procedure well. No immediate postprocedure complications are noted. Patient is sent back to her room in good condition. Resume regular diet Resume previous activity level Follow-up on biopsies Okay to be discharged from the GI standpoint
[2019-01-04] MEDS: 1/2 NORMAL SALINE 1,000 ML IV PRN (03:46)
--- NOTE | 2019-01-04 08:52 | PDOC DISCHARGE SUMMARY ---
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 She got out of bed and woke up on the floor. Hospital Course Hospital Course: Syncope did not recur. LisinoprilHCT was stopped. Bp was good enough. Monitor was ok. I heard new grade 1 diastolic murmur. She had 5d ceftriaxone for pyuria. No culture was done before 1st dose. Creatinine came down. Rectal bleed was traced to hemorroid and polyp was removed. B12>1000 on 2.5mg qd in spite of antiIF+. Physical Exam Vital Signs: Temp Pulse Resp BP Pulse Ox 98.7 F 88 17 157/62 H 96 01/04/19 03:31 01/04/19 03:31 01/04/19 03:31 01/04/19 03:31 01/04/19 03:31 Intake & Output 01/02/19 01/03/19 01/04/19 07:59 07:59 07:59 Intake Total 4690 9097 2473 Output Total 2700 3400 1300 Balance 4999 054 0214 Weight 131 lb 9.855 oz 131 lb 13.383 oz 130 lb 15.273 oz General appearance: PRESENT: no acute distress Respiratory exam: PRESENT: clear to auscultation archie Cardiovascular exam: PRESENT: diastolic murmur. ABSENT: irregular rhythm, systolic murmur Murmur grade: 1 GI/Abdominal exam: ABSENT: mass, organolmegaly, tenderness Extremities exam: ABSENT: pedal edema Neurological exam: PRESENT: oriented to situation Psychiatric exam: PRESENT: appropriate affect Results Laboratory Results: Labs- Last Values WBC 7.8 10^3/uL (4.0-10.5) 01/01/19 20:15 RBC 3.90 10^6/uL (3.72-5.28) 01/01/19 20:15 Hgb 11.0 g/dL (12.0-15.5) L 01/01/19 20:15 Hct 31.6 % (36.0-47.0) L 01/01/19 20:15 MCV 81 fl (80-97) 01/01/19 20:15 MCH 28.1 pg (27.0-33.4) 01/01/19 20:15 MCHC 34.6 g/dL (32.0-36.0) 01/01/19 20:15 RDW 14.0 % (11.5-14.0) 01/01/19 20:15 Plt Count 157 10^3/uL (150-450) 01/01/19 20:15 Seg Neutrophils % 63.8 % (42-78) 01/01/19 20:15 Lymphocytes % 25.8 % (13-45) 01/01/19 20:15 Monocytes % 8.8 % (3-13) 01/01/19 20:15 Eosinophils % 0.7 % (0-6) 01/01/19 20:15 Basophils % 0.9 % (0-2) 01/01/19 20:15 Absolute Neutrophils 5.0 10^3/uL (1.7-8.2) 01/01/19 20:15 Absolute Lymphocytes 2.0 10^3/uL (0.5-4.7) 01/01/19 20:15 Absolute Monocytes 0.7 10^3/uL (0.1-1.4) 01/01/19 20:15 Absolute Eosinophils 0.1 10^3/uL (0.0-0.6) 01/01/19 20:15 Absolute Basophils 0.1 10^3/uL (0.0-0.2) 01/01/19 20:15 Sodium 134.3 mmol/L (137-145) L 01/02/19 05:04 Potassium 4.4 mmol/L (3.6-5.0) 01/02/19 05:04 Chloride 104 mmol/L (98-107) 01/02/19 05:04 Carbon Dioxide 24 mmol/L (22-30) 01/02/19 05:04 Anion Gap 6 (5-19) 01/02/19 05:04 BUN 15 mg/dL (7-20) 01/02/19 05:04 Creatinine 1.08 mg/dL (0.52-1.25) 01/02/19 05:04 Est GFR ( Amer) 58 (>60) L 01/02/19 05:04 Est GFR (Non-Af Amer) 48 (>60) L 01/02/19 05:04 Glucose 87 mg/dL (75-110) 01/02/19 05:04 Calcium 9.7 mg/dL (8.4-10.2) 01/02/19 05:04 Total Bilirubin 0.5 mg/dL (0.2-1.3) 12/30/18 15:35 Direct Bilirubin 0.2 mg/dL (0.0-0.4) 12/30/18 15:35 Neonat Total Bilirubin Not Reportable 12/30/18 15:35 Neonat Direct Bilirubin Not Reportable 12/30/18 15:35 Neonat Indirect Bili Not Reportable 12/30/18 15:35 AST 21 U/L (14-36) 12/30/18 15:35 ALT 18 U/L (9-52) 12/30/18 15:35 Alkaline Phosphatase 62 U/L (38-126) 12/30/18 15:35 Creatine Kinase 68 U/L (30-135) 12/30/18 15:35 CK-MB (CK-2) 1.68 ng/mL (<4.55) 12/30/18 15:35 Troponin I < 0.012 ng/mL 12/30/18 15:35 Total Protein 6.4 g/dL (6.3-8.2) 12/30/18 15:35 Albumin 3.9 g/dL (3.5-5.0) 12/30/18 15:35 Vitamin B12 > 1000.0 pg/mL (239-931) H 12/31/18 05:03 Urine Color YELLOW 12/30/18 17:50 Urine Appearance CLOUDY 12/30/18 17:50 Urine pH 6.0 (5.0-9.0) 12/30/18 17:50 Ur Specific [place] 1.009 12/30/18 17:50 Urine Protein NEGATIVE mg/dL (NEGATIVE) 12/30/18 17:50 Urine Glucose (UA) NEGATIVE mg/dL (NEGATIVE) 12/30/18 17:50 Urine Ketones NEGATIVE mg/dL (NEGATIVE) 12/30/18 17:50 Urine Blood SMALL (NEGATIVE) H 12/30/18 17:50 Urine Nitrite NEGATIVE (NEGATIVE) 12/30/18 17:50 Urine Bilirubin NEGATIVE (NEGATIVE) 12/30/18 17:50 Urine Urobilinogen NEGATIVE mg/dL (<2.0) 12/30/18 17:50 Ur Leukocyte Esterase LARGE (NEGATIVE) H 12/30/18 17:50 Urine WBC (Auto) >182 /HPF 12/30/18 17:50 Urine RBC (Auto) 13 /HPF 12/30/18 17:50 Urine Bacteria (Auto) TRACE /HPF 12/30/18 17:50 Urine WBC Clumps MANY /HPF 12/30/18 17:50 Squamous Epi Cells Auto 5 /HPF 12/30/18 17:50 U Non-Squamous Epis Auto 2 /HPF 12/30/18 17:50 Urine Ascorbic Acid NEGATIVE (NEGATIVE) 12/30/18 17:50 Intrinsic Factor Ab 1.9 AU/mL (0.0-1.1) H 12/31/18 05:03 Impressions: Chest X-Ray 12/30/18 14:56 IMPRESSION: NO ACUTE RADIOGRAPHIC FINDING IN THE CHEST. Head CT 12/30/18 16:15 IMPRESSION: CHRONIC CHANGES OF ATROPHY AND MICROVASCULAR ISCHEMIA. NO ACUTE PROCESS. EVIDENCE OF ACUTE STROKE: NO. Qualifiers - * PATIENT BEING DISCHARGED WITH ANY OF THE FOLLOWING DIAGNOSIS: No Plan Discharge Plan: home. 1w ov
[2019-01-04 09:12] VITALS: BP 152/44
== END 2019-01-04 09:55 | disposition home or self-care (01) | DRG 690 ==
LOC: ER 14:46 → EH 18:41 → 4N 20:35
PROVIDERS: ADMIT Family Medicine; ATTEND Internal Medicine Gastroenterology
PROC: 0DBF8ZX Excision of Right Large Intestine, Via Natural or Artificial Opening Endoscopic, Diagnostic (ICD-10-PCS; principal; 2019-01-03 10:30)
PROC: 0DBN8ZX Excision of Sigmoid Colon, Via Natural or Artificial Opening Endoscopic, Diagnostic (ICD-10-PCS; 2019-01-03 10:30)
DX: N30.01 Acute cystitis with hematuria (principal); N17.9 Acute kidney failure, unspecified; G63 Polyneuropathy in diseases classified elsewhere; R55 Syncope and collapse; M19.90 Unspecified osteoarthritis, unspecified site; I10 Essential (primary) hypertension; E53.8 Deficiency of other specified B group vitamins; K64.8 Other hemorrhoids; K57.90 Diverticulosis of intestine, part unspecified, without perforation or abscess without bleeding; R01.1 Cardiac murmur, unspecified; E66.9 Obesity, unspecified; Z88.0 Allergy status to penicillin
CPT/HCPCS: 36415; 45380; 45385; 70450; 71046; 80048; 80053; 81001; 811; 82550; 82553; 82607; 84484; 85025; 86340; 87040; 88305; 93005; 93010; 99285; J0696; J1650; J2704; J3490; J7030

== ENCOUNTER 2019-01-15 17:03 | Inpatient (IN) | payer MEDICARE ==
[2019-01-15] MEDS ORDERED: ONDANSETRON HCL INJ/PF 4 MG/2 ML SDV IV ONE (18:46)
[2019-01-15] MEDS ORDERED: NORMAL SALINE 1000 ML 1,000 ML IV ONE (18:46)
--- NOTE | 2019-01-15 18:47 | ER Document Report ---
ED Medical Screen (RME) - General Chief Complaint: Diarrhea Stated Complaint: UNCONTROLLABLE DIARRHEA Time Seen by Provider: 01/15/19 18:30 Primary Care Provider: ISAAK CUMMINGS MD [Primary Care Provider] - Follow up as needed Mode of Arrival: Wheelchair Information source: Patient TRAVEL OUTSIDE OF THE [place] IN LAST 30 DAYS: No - HPI Patient complains to provider of: Nausea and diarrhea Onset: Yesterday Notes: 01/15/19 18:47 Patient is an 89-year-old female presenting to the emergency room today complaining of nausea and diarrhea yesterday, recently admitted and on antibiotics, patient denies vomiting, denies fever, denies abdominal pain 01/15/19 18:47 RAPID MEDICAL EVALUATION DISCLOSURE I have seen this patient as part of a Rapid Medical Evaluation and, if applicable, placed any initially appropriate orders. The patient will be seen and fully evaluated, including a full history and physical exam, by a provider (in Main ED or Fast Track) when a room becomes available. - Related Data Allergies/Adverse Reactions: Penicillins Allergy (Verified 12/30/18 14:50) Past Medical History - Past Medical History Cardiac Medical History: Reports: Hx Hypertension Pulmonary Medical History: Denies: Hx Tuberculosis Renal/ Medical History: Denies: Hx Peritoneal Dialysis Musculoskeltal Medical History: Reports Hx Arthritis Past Surgical History: Reports: Hx Appendectomy, Hx Tonsillectomy. Denies: Hx Pacemaker - Immunizations Hx Diphtheria, Pertussis, Tetanus Vaccination: Yes Physical Exam - Vital signs Vitals: Temp Pulse Resp BP Pulse Ox 97.6 F 113 H 17 144/58 H 98 01/15/19 17:34 01/15/19 17:34 01/15/19 17:34 01/15/19 17:34 01/15/19 17:34 Course - Vital Signs Vital signs: Temp Pulse Resp BP Pulse Ox 97.6 F 113 H 17 144/58 H 98 01/15/19 17:34 01/15/19 17:34 01/15/19 17:34 01/15/19 17:34 01/15/19 17:34 Doctor's Discharge - Discharge Referrals: ISAAK CUMMINGS MD [Primary Care Provider] - Follow up as needed
[2019-01-15 19:25] LABS: ABSOLUTE LYMPHOCYTES (AUTO) 1.3 10^3/uL (0.5-4.7); ABSOLUTE MONOCYTES (AUTO) 0.8 10^3/uL (0.1-1.4); ABSOLUTE NEUT (AUTO) 8.8 10^3/uL (1.7-8.2); BASOPHILS % (AUTO) 0.2 % (0-2); HEMATOCRIT 35.4 % (36.0-47.0); HEMOGLOBIN 12.3 g/dL (12.0-15.5); MEAN CORPUSCULAR HEMOGLOBIN 28.4 pg (27.0-33.4); MEAN CORPUSCULAR HGB CONC 34.8 g/dL (32.0-36.0); MEAN CORPUSCULAR VOLUME 82 fl (80-97); MONOCYTES % (AUTO) 7.2 % (3-13); PLATELET COUNT 183 10^3/uL (150-450); RED BLOOD COUNT 4.33 10^6/uL (3.72-5.28); RED CELL DISTRIBUTION WIDTH 14.8 % (11.5-14.0); SEGMENTED NEUTROPHILS % (AUTO) 80.6 % (42-78); TOTAL CELLS COUNTED % (AUTO) 100 %; WHITE BLOOD COUNT 10.9 10^3/uL (4.0-10.5)
[2019-01-15 19:59] LABS: ALANINE AMINOTRANSFERASE 22 U/L (9-52); ALBUMIN 3.6 g/dL (3.5-5.0); ALKALINE PHOSPHATASE 66 U/L (38-126); ANION GAP 10 (5-19); ASPARTATE AMINO TRANSFERASE 31 U/L (14-36); BILIRUBIN,DIRECT 0.2 mg/dL (0.0-0.4); BILIRUBIN,TOTAL 0.6 mg/dL (0.2-1.3); BLOOD UREA NITROGEN 21 mg/dL (7-20); CALCIUM 9.7 mg/dL (8.4-10.2); CARBON DIOXIDE 23 mmol/L (22-30); CHLORIDE 98 mmol/L (98-107); GLUCOSE 97 mg/dL (75-110); LIPASE 69.3 U/L (23-300); POTASSIUM 3.6 mmol/L (3.6-5.0); TOTAL PROTEIN 6.5 g/dL (6.3-8.2)
[2019-01-15] MEDS ORDERED: NORMAL SALINE 500 ML IV ONE (22:13)
[2019-01-15] MEDS ORDERED: DIAZEPAM INJ 10 MG/2 ML DISP.SYRIN IV ONE (22:47)
--- NOTE | 2019-01-15 22:48 | ER Document Report ---
ED General - General Chief Complaint: Diarrhea Stated Complaint: UNCONTROLLABLE DIARRHEA Time Seen by Provider: 01/15/19 18:30 Mode of Arrival: Wheelchair Notes: Patient is an 89-year-old female presents with complaints of diarrhea. She was admitted to the hospital last week. That time she had a UTI was placed on an tibiotics. She has had a colonoscopy which not show any concerning findings except for some hemorrhoids and a polyp. Said she was doing well until the last 36 hours when she started having diarrhea. She said recurrent continuous diarrhea and therefore they came to the ER. In the room she is little tachycardic. She otherwise looks well. She has some mild bilateral lower abdominal pain which her family says has been ongoing for little while. They said the left lower quadrant pain she had a whole time she was in the hospital last week. So the right lower quadrant pain has been intermittent. She has no upper abdominal pain. The pain is only there when you push. She says she also has an intermittent spasm of pain that goes into her right leg that makes her right leg jump. This is been ongoing for several weeks as well. No fevers. No vomiting. No blood in her stool. No other complaints at this time. TRAVEL OUTSIDE OF THE [place] IN LAST 30 DAYS: No - Related Data Allergies/Adverse Reactions: Penicillins Allergy (Verified 12/30/18 14:50) Past Medical History - General Information source: Patient - Social History Smoking Status: Unknown if Ever Smoked Frequency of alcohol use: None Drug Abuse: None Family History: Reviewed & Not Pertinent Patient has suicidal ideation: No Patient has homicidal ideation: No - Past Medical History Cardiac Medical History: Reports: Hx Hypertension Pulmonary Medical History: Denies: Hx Tuberculosis Renal/ Medical History: Denies: Hx Peritoneal Dialysis Musculoskeletal Medical History: Reports Hx Arthritis Past Surgical History: Reports: Hx Appendectomy, Hx Tonsillectomy. Denies: Hx Pacemaker - Immunizations Hx Diphtheria, Pertussis, Tetanus Vaccination: Yes Review of Systems - Review of Systems Notes: My Normal Review Basic REVIEW OF SYSTEMS: CONSTITUTIONAL : Denies fever, chills, or sweats. Denies recent illness. EENT: Denies eye, ear, throat, or mouth pain or symptoms. Denies nasal or sinus congestion. CARDIOVASCULAR: Denies chest pain. RESPIRATORY: Denies cough, cold, or chest congestion. Denies shortness of breath, difficulty breathing, or wheezing. GASTROINTESTINAL: Intermittent lower abdominal pain. Diarrhea. GENITOURINARY: Denies difficulty urinating, painful urination, burning, frequency, or blood in urine. MUSCULOSKELETAL: Denies neck or back pain or joint pain or swelling. SKIN: Denies rash or skin lesions. NEUROLOGICAL: Denies altered mental status or loss of consciousness. Denies headache. Denies weakness or paralysis or loss of use of either side. Denies problems with gait or speech. Denies sensory or motor loss. ALL OTHER SYSTEMS REVIEWED AND NEGATIVE. Physical Exam - Vital signs Vitals: Temp Pulse Resp BP Pulse Ox 97.6 F 113 H 17 144/58 H 98 01/15/19 17:34 01/15/19 17:34 01/15/19 17:34 01/15/19 17:34 01/15/19 17:34 - Notes Notes: General Appearance: Well nourished, alert, cooperative, no acute distress, no obvious discomfort. Well-appearing. Vitals: reviewed, See vital signs table. Eyes: PERRL, EOMI, Conjuctiva clear Mouth: No decreasd moisture Lungs: No wheezing, No rales, No rhonci, No accessory muscle use, good air exchange bilaterally. Heart: Normal rate, Regular rythm, No murmur, no rub Abdomen: Normal BS, soft, No rigidity, mild reproducible lower abdominal tenderness in the bilateral lower aspect of the abdomen., No guarding, no rebound, no abdominal masses, no organomegaly Extremities: strength 5/5 in all extremities, good pulses in all extremities, no swelling or tenderness in the extremities, no edema. Skin: warm, dry, appropriate color, no rash Neuro: speech clear, oriented x 3, normal affect, responds appropriately to questions. Course - Re-evaluation Re-evalutation: 01/15/19 22:48 Patient just started having this intermittent jumping and sharp pain that shoots down the medial aspect of her upper right leg. Family says this was intermittent when she was in the hospital last time as well. When I palpate the patient's ligaments happening she has a quick jerk-like spasms over the muscles over the medial aspect of her right thigh. She has some pain to palpation of the area. I will give her a small dose of Valium to see if this helps stop the spasm. 01/15/19 23:10 Patient's stool studies is positive for C. difficile which makes sense with her clinical history. She still has some resting tachycardia with a heart rate around 110-114. She is received a liter and half fluids. We will give her a dose of Flagyl. I did speak with the hospitalist, Dr. Antony. He says he will come evaluate the patient for admission but request that we also order CT scan. CT scan has been ordered. Patient's primary care doctor is Dr. Delgado however he is on vacation and therefore hospitalist is covering for his admissions. Dictation of this chart was performed using voice recognition software; therefore, there may be some unintended grammatical errors. - Vital Signs Vital signs: Temp Pulse Resp BP Pulse Ox 97.6 F 113 H 17 144/58 H 98 01/15/19 17:34 01/15/19 17:34 01/15/19 17:34 01/15/19 17:34 01/15/19 17:34 - Laboratory Result Diagrams: 01/15/19 19:15 01/15/19 19:15 Laboratory results interpreted by me: 01/15/19 01/15/19 19:15 19:15 WBC 10.9 H Hct 35.4 L RDW 14.8 H Seg Neutrophils % 80.6 H Lymphocytes % 12.0 L Absolute Neutrophils 8.8 H Sodium 131.0 L BUN 21 H Creatinine 1.38 H Est GFR ( Amer) 44 L Est GFR (Non-Af Amer) 36 L Discharge - Discharge Clinical Impression: C. difficile diarrhea Condition: Stable Disposition: ADMITTED INPATIENT Admitting Provider: Hospitalist Unit Admitted: Telemetry
[2019-01-15] MEDS ORDERED: METRONIDAZOLE 500 MG/NS RTU 500 MG/100 ML RTUPB IV ONE (23:02)
[2019-01-15] MEDS ORDERED: ONDANSETRON HCL INJ/PF 4 MG/2 ML SDV IV PRN (23:29)
[2019-01-15] MEDS ORDERED: RINGERS SOLUTION,LACTATED 1,000 ML IV PRN (23:29)
[2019-01-15] MEDS ORDERED: TEMAZEPAM 7.5 MG CAPSULE PO PRN (23:29)
[2019-01-15] MEDS ORDERED: MORPHINE SULFATE 10 MG/ML INJ IV PRN (23:33)
[2019-01-15] MEDS ORDERED: ACETAMINOPHEN 325 MG TABLET PO PRN (23:33)
[2019-01-16] MEDS: VANCOMYCIN HCL INJ 500 MG VIAL PO SCH ×5 (00:22→23:45)
--- NOTE | 2019-01-16 00:30 | PDOC H&P ---
History of Present Illness Admission Date/PCP: 01/15/2019 ISAAK CUMMINGS MD Patient complains of: Diarrhea History of Present Illness: KRYSTLE ESTRADA is a 89 year old female who presented to the emergency with a 2-day history of progressively worsening diarrhea. Patient is not the best historian due to mild dementia but is capable of providing reasonable information. She states that for the last 2 days she has experienced multiple daily large watery diarrhea stools that have become more frequent and more copious. The diarrhea has been accompanied by moderate, diffuse, nonradiating, intermittent, lower abdominal crampy pain, generalized weakness and orthostatic syncope. She denies prior similar episodes and has not identified any aggravating or ameliorating factors for her diarrhea. She admits that she was recently hospitalized and treated with IV and subsequently oral antibiotics for a urinary tract infection. In the emergency room she was found to be tachycardic and tested positive for C. difficile enterocolitis on a stool specimen. She was additionally noted to have acute kidney injury. With these findings patient was subsequently admitted to the hospital for further evaluation treatment. Past Medical History Cardiac Medical History: Reports: Hypertension Denies: Atrial Fibrillation, Coronary Artery Disease Pulmonary Medical History: Denies: Asthma, Tuberculosis EENT Medical History: Denies: Cataracts, Nose Neurological Medical History: Denies: Hemorrhagic CVA, Ischemic CVA - Nasal polyps, Seizures Endocrine Medical History: Denies: Diabetes Mellitus Type 1, Diabetes Mellitus Type 2, Hyperthyroidism, Hypothyroidism Renal/ Medical History: Denies: Chronic Kidney Disease, Nephrolithiasis Malignancy Medical History: Reports: None GI Medical History: Denies: Cirrhosis, Hepatitis Musculoskeltal Medical History: Reports: Arthritis Denies: Gout Skin Medical History: Denies: Eczema, Psoriasis Psychiatric Medical History: Denies: Alcohol Dependency, Substance Abuse, Tobacco Dependency Traumatic Medical History: Reports: None Hematology: Reports: Anemia Denies: Bleeding Tendencies Infectious Medical History: Reports: None Past Surgical History Past Surgical History: Reports: Appendectomy, Tonsillectomy Social History Information Source: Patient Lives with: Family Smoking Status: Never Smoker Frequency of Alcohol Use: None Hx Recreational Drug Use: No Drugs: None Hx Prescription Drug Abuse: No - Advance Directive Resuscitation Status: Full Code Surrogate healthcare decision maker:: Spouse Family History Family History: Hypertension, Malignancy. denies: CAD, DM Parental Family History Reviewed: Yes Children Family History Reviewed: No Sibling(s) Family History Reviewed.: Yes Medication/Allergy Home Medications: Cyanocobalamin (Vitamin B-12) [Vitamin B-12 1000 mcg Tablet] 1 tab PO DAILY 12/31/18 Allergies/Adverse Reactions: Penicillins Allergy (Verified 12/30/18 14:50) Review of Systems Constitutional: PRESENT: as per HPI, weakness - [address]. ABSENT: chills, fever(s) Eyes: ABSENT: visual disturbances, other - Eye pain Ears: ABSENT: hearing changes, other - Repeat Nose, Mouth, and Throat: ABSENT: mouth pain, sore throat Cardiovascular: PRESENT: as per HPI, other - Orthostatic syncope. ABSENT: chest pain, palpitations Respiratory: ABSENT: cough, dyspnea Gastrointestinal: PRESENT: as per HPI, abdominal pain, diarrhea. ABSENT: constipation, hematochezia, nausea, vomiting Genitourinary: ABSENT: dysuria, hematuria Musculoskeletal: ABSENT: back pain, joint swelling Integumentary: ABSENT: pruritus, rash Neurological: PRESENT: as per HPI, syncope - Orthostatic. ABSENT: confusion, convulsions, focal weakness, memory loss Psychiatric: ABSENT: anxiety, depression Endocrine: ABSENT: cold intolerance, heat intolerance Hematologic/Lymphatic: ABSENT: easy bleeding, easy bruising Physical Exam Vital Signs: Temp Pulse Resp BP Pulse Ox 97.6 F 113 H 17 144/58 H 98 01/15/19 17:34 01/15/19 17:34 01/15/19 17:34 01/15/19 17:34 01/15/19 17:34 Intake & Output 01/13/19 01/14/19 01/15/19 23:59 23:59 23:59 Intake Total 1500 Balance 1500 Weight 57.1 kg General appearance: PRESENT: no acute distress, cooperative Head exam: PRESENT: atraumatic, normocephalic Eye exam: PRESENT: conjunctiva pink. ABSENT: scleral icterus Ear exam: PRESENT: normal external ear exam. ABSENT: bleeding, drainage Mouth exam: PRESENT: dry mucosa, neck supple Neck exam: ABSENT: thyromegaly, tracheal deviation Respiratory exam: PRESENT: clear to auscultation archie, symmetrical, unlabored Cardiovascular exam: PRESENT: RRR, tachycardia. ABSENT: clicks, gallop, rubs Pulses: PRESENT: normal radial pulses, normal dorsalis pedis pul Vascular exam: PRESENT: normal capillary refill. ABSENT: pallor GI/Abdominal exam: PRESENT: normal bowel sounds, soft, tenderness - Mild diffuse lower abdominal tenderness Rectal exam: PRESENT: deferred Extremities exam: ABSENT: joint swelling, pedal edema Musculoskeletal exam: ABSENT: deformity, dislocation Neurological exam: PRESENT: alert, oriented to person, oriented to place, oriented to time, oriented to situation, CN II-XII grossly intact. ABSENT: motor sensory deficit Psychiatric exam: PRESENT: appropriate affect, normal mood Skin exam: PRESENT: dry, intact, warm. ABSENT: jaundice, rash, urticaria Results Laboratory Results: 01/15/19 19:15 01/15/19 19:15 01/15/19 01/15/19 19:15 19:15 WBC 10.9 H RBC 4.33 Hgb 12.3 Hct 35.4 L MCV 82 MCH 28.4 MCHC 34.8 RDW 14.8 H Plt Count 183 Seg Neutrophils % 80.6 H Lymphocytes % 12.0 L Monocytes % 7.2 Eosinophils % 0.0 Basophils % 0.2 Absolute Neutrophils 8.8 H Absolute Lymphocytes 1.3 Absolute Monocytes 0.8 Absolute Eosinophils 0.0 Absolute Basophils 0.0 Sodium 131.0 L Potassium 3.6 Chloride 98 Carbon Dioxide 23 Anion Gap 10 BUN 21 H Creatinine 1.38 H Est GFR ( Amer) 44 L Est GFR (Non-Af Amer) 36 L Glucose 97 Calcium 9.7 Total Bilirubin 0.6 AST 31 ALT 22 Alkaline Phosphatase 66 Total Protein 6.5 Albumin 3.6 Lipase 69.3 Assessment & Plan - Diagnosis (1) Clostridium difficile enterocolitis Is this a current diagnosis for this admission?: Yes Plan: Patient be treated with vancomycin 125 mg p.o. every 6 hours per standard therapy. CBC and metabolic profile will be evaluated on a daily basis and her overall progress will be monitored closely. Magnesium will also be monitored regularly. Patient will receive morphine sulfate 2-4 mg IV every 2 hours as needed for abdominal pain per sliding scale. (2) Acute kidney injury (nontraumatic) Is this a current diagnosis for this admission?: Yes Plan: Patient be treated with IV fluids for resuscitation and rehydration. Her CBC and electrolyte to be monitored closely. (3) Weakness Is this a current diagnosis for this admission?: Yes Plan: Patient will be treated with IV fluid for rehydration and resuscitation with a close clinical monitoring for evaluation of her weakness and orthostatic syncope. (4) B12 neuropathy Is this a current diagnosis for this admission?: Yes Plan: Patient be continued on B12 1000 mg p.o. daily as per her usual therapy. - Time Time Spent: 30 to 50 Minutes Critical Time spent with patient: Less than 15 minutes Anticipated discharge: Home - Inpatient Certification Based on my medical assessment, after consideration of the patient's comorbidities, presenting symptoms, or acuity I expect that the services needed warrant INPATIENT care.: Yes I certify that my determination is in accordance with my understanding of Medicare's requirements for reasonable and necessary INPATIENT services [42 CFR 412.3e].: Yes Medical Necessity: Need Close Monitoring Due to Risk of Patient Decompensation, Need For IV Fluids, Risk of Complication if Not Cared For in Hospital
--- NOTE | 2019-01-16 01:33 | RADIOLOGY REPORT (SQ) ---
EXAM DESCRIPTION: CT ABDOMEN PELVIS WITH IV CONTRAST COMPLETED DATE/TME: 01/15/2019 23:08 CLINICAL HISTORY: 89 years, Female, abdominal pain COMPARISON: 11/05/2012 CT TECHNIQUE: 655 Images stored on PACS. All CT scanners at this facility use dose modulation, iterative reconstruction, and/or weight based dosing when appropriate to reduce radiation dose to as low as reasonably achievable (ALARA). [facility]: Dose Right [facility]: CareDose [facility]: Dose Right [facility]: Teradose 4D [facility]: [employer] LIMITATIONS: None. FINDINGS: Limited evaluation of the lung bases is unremarkable. Severe scoliosis of the lumbar spine. Osseous structures are otherwise grossly intact. Motion artifact degrades image quality. Fatty infiltrative change to the liver. Subcentimeter hypodensity near the dome of the liver likely reflects a small cyst or hemangioma. The spleen, adrenal glands, are unremarkable. Vague hypodensity near the pancreatic head may in part relate to volume averaging with the adjacent biliary tree. This appears similar compared with the prior exam. Cystic lesion of the pancreatic head is not excluded this measures 1.1 x 1.0 cm. Severe atheromatous changes of the abdominal aorta. The kidneys are grossly unremarkable. The gallbladder is present. The appendix is not definitively seen. No pericecal inflammation. Stable calcifications in the right lower quadrant. Redundancy of the sigmoid colon. Subjective wall thickening of the sigmoid colon with a few diverticuli in the area as well as minor surrounding inflammation may reflect minor acute diverticulitis. No free air or free fluid. Subjective diffuse colonic wall thickening. IMPRESSION: Subjective diffuse colonic wall thickening with a more focal area of wall thickening and minor inflammation associated with the sigmoid colon. A few diverticuli are present. Findings could reflect mild acute diverticulitis with underlying nonspecific colitis. No free air or free fluid. Motion artifact grades image quality. Severe scoliosis. Small hepatic cyst. Severe atheromatous change. TECHNICAL DOCUMENTATION: Quality ID # 436: Final reports with documentation of one or more dose reduction techniques (e.g., Automated exposure control, adjustment of the mA and/or kV according to patient size, use of iterative reconstruction technique) copyright 2010 [employer]- All Rights Reserved
[2019-01-16] MEDS ORDERED: VANCOMYCIN HCL INJ 1000 MG VIAL ONE (06:06)
[2019-01-16] MEDS: HEPARIN SOD (PORCINE) 5,000 UNIT/ML 1 ML SYRINGE SUBCUT SCH ×3 (06:42→21:33)
[2019-01-16 06:47] LABS: ABSOLUTE BASOPHILS # (AUTO) 0.1 10^3/uL (0.0-0.2); ABSOLUTE LYMPHOCYTES (AUTO) 1.3 10^3/uL (0.5-4.7); ABSOLUTE MONOCYTES (AUTO) 0.9 10^3/uL (0.1-1.4); ABSOLUTE NEUT (AUTO) 6.1 10^3/uL (1.7-8.2); BASOPHILS % (AUTO) 0.6 % (0-2); EOSINOPHILS % (AUTO) 0.1 % (0-6); HEMATOCRIT 30.8 % (36.0-47.0); HEMOGLOBIN 10.7 g/dL (12.0-15.5); LYMPHOCYTES % (AUTO) 16.2 % (13-45); MEAN CORPUSCULAR HEMOGLOBIN 28.4 pg (27.0-33.4); MEAN CORPUSCULAR HGB CONC 34.8 g/dL (32.0-36.0); MEAN CORPUSCULAR VOLUME 82 fl (80-97); MONOCYTES % (AUTO) 10.3 % (3-13); PLATELET COUNT 131 10^3/uL (150-450); RED BLOOD COUNT 3.77 10^6/uL (3.72-5.28); RED CELL DISTRIBUTION WIDTH 14.9 % (11.5-14.0); SEGMENTED NEUTROPHILS % (AUTO) 72.8 % (42-78); TOTAL CELLS COUNTED % (AUTO) 100 %; WHITE BLOOD COUNT 8.3 10^3/uL (4.0-10.5)
[2019-01-16 07:07] LABS: ANION GAP 7 (5-19); BLOOD UREA NITROGEN 17 mg/dL (7-20); CALCIUM 8.7 mg/dL (8.4-10.2); CARBON DIOXIDE 22 mmol/L (22-30); CHLORIDE 105 mmol/L (98-107); GLUCOSE 85 mg/dL (75-110); POTASSIUM 3.3 mmol/L (3.6-5.0); SODIUM 134.4 mmol/L (137-145)
[2019-01-16 07:24] LABS: FREE T3 2.92 pg/mL (2.77-5.27); FREE T4 (FREE THYROXINE) 1.71 ng/dL (0.78-2.19)
[2019-01-16 07:38] LABS: THYROID STIMULATING HORMONE 0.28 uIU/mL (0.47-4.68)
[2019-01-16] MEDS ORDERED: METOPROLOL TARTRATE 25 MG TABLET PO ONE (10:45)
[2019-01-16] MEDS: FAMOTIDINE 20 MG TABLET PO SCH ×2 (10:50→21:33)
[2019-01-16] MEDS: CYANOCOBALAMIN (VITAMIN B-12) 1,000 MCG TABLET PO SCH (10:50)
[2019-01-16] MEDS: MAGNESIUM SULFATE/D5W 1 GM/100 ML RTUPB IV SCH ×2 (10:53→12:11)
--- NOTE | 2019-01-16 16:41 | EKG REPORT ---
SEVERITY:- ABNORMAL ECG - ATRIAL FIBRILLATION, V-RATE 79-160 PROBABLE ANTEROSEPTAL INFARCT, AGE INDETERM : Confirmed by: Moni Alcantara 16-Jan-2019 16:41:04
--- NOTE | 2019-01-16 16:53 | PDOC PROGRESS REPORT ---
Subjective Progress Note for:: 01/16/19 Subjective:: Patient has been resting comfortably today. Had minimal diarrhea. She did develop new onset atrial fib. I have ordered an echocardiogram. Her on low- dose metoprolol and she converted back to sinus rhythm. For secondary to being 89 years old and a strain from the C. difficile on her heart. Reason For Visit: DIARRHEA WITH HYPOVOLEMIA Physical Exam Vital Signs: Temp Pulse Resp BP Pulse Ox 97.6 F 69 16 119/64 98 01/16/19 13:45 01/16/19 13:45 01/16/19 13:45 01/16/19 13:45 01/16/19 13:45 Intake & Output 01/15/19 01/16/19 01/17/19 06:59 06:59 06:59 Intake Total 1600 1200 Balance 1600 1200 Weight 57 kg General appearance: PRESENT: no acute distress, cooperative Eye exam: ABSENT: scleral icterus Mouth exam: PRESENT: moist, neck supple Neck exam: PRESENT: full ROM. ABSENT: JVD, lymphadenopathy, tenderness, thyromegaly, tracheal deviation Respiratory exam: PRESENT: clear to auscultation archie. ABSENT: accessory muscle use Cardiovascular exam: PRESENT: irregular rhythm Musculoskeletal exam: PRESENT: ambulatory Neurological exam: PRESENT: alert, oriented to person, oriented to place, oriented to time, oriented to situation Results Laboratory Results: 01/16/19 06:03 01/16/19 06:03 01/15/19 01/15/19 01/16/19 19:15 19:15 06:03 WBC 10.9 H 8.3 RBC 4.33 3.77 Hgb 12.3 10.7 L Hct 35.4 L 30.8 L MCV 82 82 MCH 28.4 28.4 MCHC 34.8 34.8 RDW 14.8 H 14.9 H Plt Count 183 131 L Seg Neutrophils % 80.6 H 72.8 Lymphocytes % 12.0 L 16.2 Monocytes % 7.2 10.3 Eosinophils % 0.0 0.1 Basophils % 0.2 0.6 Absolute Neutrophils 8.8 H 6.1 Absolute Lymphocytes 1.3 1.3 Absolute Monocytes 0.8 0.9 Absolute Eosinophils 0.0 0.0 Absolute Basophils 0.0 0.1 Sodium 131.0 L Potassium 3.6 Chloride 98 Carbon Dioxide 23 Anion Gap 10 BUN 21 H Creatinine 1.38 H Est GFR ( Amer) 44 L Est GFR (Non-Af Amer) 36 L Glucose 97 Calcium 9.7 Magnesium Total Bilirubin 0.6 AST 31 ALT 22 Alkaline Phosphatase 66 Total Protein 6.5 Albumin 3.6 Lipase 69.3 TSH Free T4 Free T3 pg/mL 01/16/19 01/16/19 06:03 06:03 WBC RBC Hgb Hct MCV MCH MCHC RDW Plt Count Seg Neutrophils % Lymphocytes % Monocytes % Eosinophils % Basophils % Absolute Neutrophils Absolute Lymphocytes Absolute Monocytes Absolute Eosinophils Absolute Basophils Sodium 134.4 L Potassium 3.3 L Chloride 105 Carbon Dioxide 22 Anion Gap 7 BUN 17 Creatinine 1.21 Est GFR ( Amer) 51 L Est GFR (Non-Af Amer) 42 L Glucose 85 Calcium 8.7 Magnesium 1.8 Total Bilirubin AST ALT Alkaline Phosphatase Total Protein Albumin Lipase TSH 0.28 L Free T4 1.71 Free T3 pg/mL 2.92 Impressions: Abdomen/Pelvis CT 01/15/19 23:08 IMPRESSION: Subjective diffuse colonic wall thickening with a more focal area of wall thickening and minor inflammation associated with the sigmoid colon. A few diverticuli are present. Findings could reflect mild acute diverticulitis with underlying nonspecific colitis. No free air or free fluid. Motion artifact grades image quality. Severe scoliosis. Small hepatic cyst. Severe atheromatous change. TECHNICAL DOCUMENTATION: Quality ID # 436: Final reports with documentation of one or more dose reduction techniques (e.g., Automated exposure control, adjustment of the mA and/or kV according to patient size, use of iterative reconstruction technique) copyright 2011 [employer]- All Rights Reserved Assessment and Plan - Diagnosis (1) New onset atrial fibrillation Is this a current diagnosis for this admission?: Yes Plan: 01/16/19 16:52 Started on low-dose metoprolol and she converted back to sinus rhythm. Will order an echocardiogram. Continue to monitor. (2) C. difficile diarrhea Is this a current diagnosis for this admission?: Yes Plan: 01/16/19 16:52 Continue oral vancomycin. Continue to monitor output. (3) Dehydration Is this a current diagnosis for this admission?: Yes Plan: 01/16/19 16:52 This is resolved. Stopped IV fluids. Patient has been tolerating orals without difficulty diarrhea has been minimal. - Time Time Spent with patient: 25-34 minutes Anticipated discharge: Home Within: within 48 hours
[2019-01-16] MEDS ORDERED: METOPROLOL TARTRATE PF/INJ 5 MG/5 ML SDV IV ONE (20:30)
[2019-01-16] MEDS: METOPROLOL TARTRATE 25 MG TABLET PO SCH (21:33)
[2019-01-17] MEDS: HEPARIN SOD (PORCINE) 5,000 UNIT/ML 1 ML SYRINGE SUBCUT SCH ×3 (05:30→21:43)
[2019-01-17] MEDS: VANCOMYCIN HCL INJ 500 MG VIAL PO SCH ×3 (05:31→17:18)
[2019-01-17 06:08] LABS: ABSOLUTE BASOPHILS # (AUTO) 0.1 10^3/uL (0.0-0.2); ABSOLUTE EOSINOPHILS # (AUTO) 0.1 10^3/uL (0.0-0.6); ABSOLUTE LYMPHOCYTES (AUTO) 1.3 10^3/uL (0.5-4.7); ABSOLUTE MONOCYTES (AUTO) 0.6 10^3/uL (0.1-1.4); BASOPHILS % (AUTO) 1.1 % (0-2); EOSINOPHILS % (AUTO) 2.1 % (0-6); HEMATOCRIT 30.8 % (36.0-47.0); HEMOGLOBIN 10.6 g/dL (12.0-15.5); MEAN CORPUSCULAR HEMOGLOBIN 28.2 pg (27.0-33.4); MEAN CORPUSCULAR HGB CONC 34.5 g/dL (32.0-36.0); MEAN CORPUSCULAR VOLUME 82 fl (80-97); MONOCYTES % (AUTO) 10.5 % (3-13); PLATELET COUNT 148 10^3/uL (150-450); RED BLOOD COUNT 3.76 10^6/uL (3.72-5.28); RED CELL DISTRIBUTION WIDTH 14.8 % (11.5-14.0); SEGMENTED NEUTROPHILS % (AUTO) 65.3 % (42-78); TOTAL CELLS COUNTED % (AUTO) 100 %; WHITE BLOOD COUNT 6.1 10^3/uL (4.0-10.5)
[2019-01-17 06:30] LABS: ANION GAP 9 (5-19); BLOOD UREA NITROGEN 14 mg/dL (7-20); CARBON DIOXIDE 20 mmol/L (22-30); CHLORIDE 105 mmol/L (98-107); GLUCOSE 84 mg/dL (75-110); POTASSIUM 3.3 mmol/L (3.6-5.0); SODIUM 133.7 mmol/L (137-145)
[2019-01-17] MEDS ORDERED: POTASSIUM CHLORIDE 10 MEQ CAPSULE.ER PO ONE (08:00)
[2019-01-17] MEDS: METOPROLOL TARTRATE 25 MG TABLET PO SCH ×2 (10:36→21:43)
[2019-01-17] MEDS: FAMOTIDINE 20 MG TABLET PO SCH ×2 (10:36→21:43)
[2019-01-17] MEDS: CYANOCOBALAMIN (VITAMIN B-12) 1,000 MCG TABLET PO SCH (10:36)
--- NOTE | 2019-01-17 11:14 | PDOC PROGRESS REPORT ---
Subjective Progress Note for:: 01/17/19 Subjective:: Patient has been resting comfortably today. Had minimal diarrhea. She did develop new onset atrial fib. I have ordered an echocardiogram. Started her on low-dose metoprolol and she converted back to sinus rhythm. For secondary to being 89 years old and a strain from the C. difficile on her heart. Reason For Visit: DIARRHEA WITH HYPOVOLEMIA Physical Exam Vital Signs: Temp Pulse Resp BP Pulse Ox 97.9 F 103 H 19 142/58 H 96 01/17/19 07:00 01/17/19 07:00 01/17/19 07:00 01/17/19 07:00 01/17/19 07:00 Intake & Output 01/16/19 01/17/19 01/18/19 06:59 06:59 06:59 Intake Total 1600 1886 420 Output Total 350 850 Balance 1600 1536 -430 Weight 57 kg 57.2 kg General appearance: PRESENT: no acute distress, cooperative Mouth exam: PRESENT: neck supple Neck exam: PRESENT: full ROM. ABSENT: JVD, lymphadenopathy, thyromegaly, tracheal deviation Respiratory exam: PRESENT: clear to auscultation archie. ABSENT: accessory muscle use GI/Abdominal exam: PRESENT: normal bowel sounds, soft. ABSENT: tenderness Extremities exam: ABSENT: pedal edema Musculoskeletal exam: PRESENT: full ROM. ABSENT: tenderness Skin exam: PRESENT: dry, normal color, warm Results Laboratory Results: 01/17/19 05:30 01/17/19 05:30 01/17/19 01/17/19 05:30 05:30 WBC 6.1 RBC 3.76 Hgb 10.6 L Hct 30.8 L MCV 82 MCH 28.2 MCHC 34.5 RDW 14.8 H Plt Count 148 L Seg Neutrophils % 65.3 Lymphocytes % 21.0 Monocytes % 10.5 Eosinophils % 2.1 Basophils % 1.1 Absolute Neutrophils 4.0 Absolute Lymphocytes 1.3 Absolute Monocytes 0.6 Absolute Eosinophils 0.1 Absolute Basophils 0.1 Sodium 133.7 L Potassium 3.3 L Chloride 105 Carbon Dioxide 20 L Anion Gap 9 BUN 14 Creatinine 1.19 Est GFR ( Amer) 52 L Est GFR (Non-Af Amer) 43 L Glucose 84 Calcium 9.0 Magnesium 2.4 H Impressions: Abdomen/Pelvis CT 01/15/19 23:08 IMPRESSION: Subjective diffuse colonic wall thickening with a more focal area of wall thickening and minor inflammation associated with the sigmoid colon. A few diverticuli are present. Findings could reflect mild acute diverticulitis with underlying nonspecific colitis. No free air or free fluid. Motion artifact grades image quality. Severe scoliosis. Small hepatic cyst. Severe atheromatous change. TECHNICAL DOCUMENTATION: Quality ID # 436: Final reports with documentation of one or more dose reduction techniques (e.g., Automated exposure control, adjustment of the mA and/or kV according to patient size, use of iterative reconstruction technique) copyright 2011 [employer]- All Rights Reserved Assessment and Plan - Diagnosis (1) New onset atrial fibrillation Is this a current diagnosis for this admission?: Yes Plan: 01/16/19 16:52 Started on low-dose metoprolol and she converted back to sinus rhythm. WStill waiting on echocardiogram results. Continue to monitor. (2) C. difficile diarrhea Is this a current diagnosis for this admission?: Yes Plan: 01/16/19 16:52 Continue oral vancomycin. Continue to monitor output. Has had 5 BM between midnight and 10 AM. (3) Dehydration Is this a current diagnosis for this admission?: Yes Plan: resolved, tolerating orals without issue, will monitor. still with several bouts of diarrhea daily though - Time Time Spent with patient: 25-34 minutes Medications reviewed and adjusted accordingly: Yes Anticipated discharge: Home Within: within 48 hours
--- NOTE | 2019-01-17 20:17 | XCELERA REPORT ---
[address] [address] Transthoracic Echocardiogram Report Name: KRYSTLE ESTRADA Age: 89 yrs Gender: Female : 1930 Patient Status: Inpatient Patient Location: [address] [place], [place] [id number] Study Date: 01/16/2019 05:49 PM Height: 63 in Weight: 125 lb BSA: 1.6 m2 Procedure: A two-dimensional transthoracic echocardiogram with color flow Doppler was performed. The study was technically difficult with many images being suboptimal in quality. Reason For Study: new onset atrial fib History: ATRIAL FIBRILLATION. Ordering Physician: DINA NGUYEN Performed By: Juanita Alvarez Interpretation Summary The left ventricle is normal in size. There is normal left ventricular wall thickness. LV EF is > than 60% The left ventricular ejection fraction is within normal limits. 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 The right ventricle is not well visualized secondary to technical limitations The left atrial size is normal. There is no evidence of mitral valve prolapse. There is no vegetation seen on the mitral valve. There is no mitral valve stenosis. Mild perhaps moderate MR. There is no aortic valvular vegetation. There is no aortic valve stenosis There is aortic sclerosis without aortic stenosis. There is no LVOT obstruction. There is a mild amount of aortic regurgitation There is no tricuspid stenosis. There is a trace to mild amount of tricuspid regurgitation There is mild pulmonary hypertension by echo RVSP is 40 to 45 mm of Hg , with RA mean of 10 to 15. There is no pulmonic valvular stenosis. There is a trace amount of pulmonic regurgitation The inferior vena cava appeared normal and decreased < 50% with respiration (RAP 10-15 mmHg) There is no pericardial effusion. MMode/2D Measurements & Calculations RVDd: 2.2 cm LVIDd: 3.5 cm FS: 26.5 % Ao root diam: 3.0 cm IVSd: 1.1 cm LVIDs: 2.6 cm EDV(Teich): 51.4 ml Ao root area: 6.9 cm2 LVPWd: 0.86 cm ESV(Teich): 24.2 ml LA dimension: 2.6 cm EF(Teich): 52.9 % Doppler Measurements & Calculations MV E max gary: MV P1/2t max gary: Ao V2 max: AI max gary: 108.1 cm/sec 113.4 cm/sec 127.6 cm/sec 427.1 cm/sec MV A max gary: MV P1/2t: 44.1 msec Ao max PG: AI max P.4 cm/sec MVA(P1/2t): 5.0 cm2 6.5 mmHg 73.1 mmHg MV E/A: 1.3 MV dec slope: AI dec slope: 313.1 cm/sec2 754.0 cm/sec2 AI P1/2t: MV dec time: 0.18 sec 399.6 msec LV V1 max PG: PA V2 max: PI end-d gary: TR max gary: 3.9 mmHg 80.1 cm/sec 89.6 cm/sec 272.8 cm/sec LV V1 max: PA max P.6 mmHg TR max P.2 cm/sec 29.8 mmHg AV P1/2t-pr_phl: MV P1/2t-pr_phl: 410.7 msec 44.1 msec Left Ventricle The left ventricle is normal in size. There is normal left ventricular wall thickness. LV EF is > than 60%. The left ventricular ejection fraction is within normal limits. Doppler measurements suggest normal left ventricular diastolic function. PATIENT NOW IN SINUS RHYTHM WITH FIRST DEGREE AV BLOCK.. Right Ventricle The right ventricle is not well visualized secondary to technical limitations. Atria The right atrium is normal. The left atrial size is normal. Mitral Valve There is no evidence of mitral valve prolapse. There is no vegetation seen on the mitral valve. There is no mitral valve stenosis. Mild perhaps moderate MR. Aortic Valve There is no aortic valvular vegetation. There is no aortic valve stenosis. There is aortic sclerosis without aortic stenosis. There is no LVOT obstruction. There is a mild amount of aortic regurgitation. Tricuspid Valve There is no tricuspid stenosis. There is a trace to mild amount of tricuspid regurgitation. There is mild pulmonary hypertension by echo. RVSP is 40 to 45 mm of Hg , with RA mean of 10 to 15. Pulmonic Valve There is no pulmonic valvular stenosis. There is a trace amount of pulmonic regurgitation. Great Vessels The aortic root is normal size. The inferior vena cava appeared normal and decreased < 50% with respiration (RAP 10-15 mmHg). Effusions There is no pericardial effusion. : DINA NGUYEN > Nelsy Mijares
[2019-01-17] MEDS: DIAZEPAM INJ 10 MG/2 ML DISP.SYRIN IV PRN (21:43)
[2019-01-17] MEDS ORDERED: METOPROLOL TARTRATE PF/INJ 5 MG/5 ML SDV IV ONE ×2 (23:01→23:26)
[2019-01-17] MEDS: CHLORPROMAZINE HCL INJ 25 MG/1 ML AMPULE IV PRN (23:20)
--- NOTE | 2019-01-18 | Progress Note ---
Provider Note Provider Note: Critical care note: Critical care time start: 2330 Patient was seen for critical care due to a rapid heart rate 160s-180s with hypotension systolic blood pressure less than 70. Patient was given IV fluid bolus and cardioversion monitor patches were placed in position. Patient's rate was confirmed as SVT by twelve-lead EKG and cardioversion was undertaken with 50 J showing a resolution of her tachycardia for a few seconds within rapidly went back to a rate of approximately 170. Another cardioversion effort was undertaken with 50 J bring about resolution of her SVT with her heart rate returning to the rate of 84 with a blood pressure of 104/44. Patient was subsequently given additional IV fluids and transferred to the ICU for further evaluation and care. Critical care time end: 2350 Total critical care [id number] time: 20 minutes
[2019-01-18] MEDS: VANCOMYCIN HCL INJ 500 MG VIAL PO SCH ×4 (00:26→17:40)
[2019-01-18] MEDS ORDERED: VANCOMYCIN HCL INJ 1000 MG VIAL IV SCH (00:53)
[2019-01-18] MEDS ORDERED: VANCOMYCIN HCL INJ 1000 MG VIAL IV PRN (01:00)
[2019-01-18] MEDS ORDERED: VANCOMYCIN HCL 1,000 MG in DEXTROSE 5%-WATER 250 ML IV ONE (01:00)
[2019-01-18] MEDS: DIAZEPAM INJ 10 MG/2 ML DISP.SYRIN IV PRN ×2 (01:45→17:48)
[2019-01-18] MEDS ORDERED: VANCOMYCIN HCL INJ 1000 MG VIAL ONE (02:26)
[2019-01-18 04:20] LABS: ABSOLUTE EOSINOPHILS # (AUTO) 0.1 10^3/uL (0.0-0.6); ABSOLUTE LYMPHOCYTES (AUTO) 0.8 10^3/uL (0.5-4.7); ABSOLUTE MONOCYTES (AUTO) 0.4 10^3/uL (0.1-1.4); ABSOLUTE NEUT (AUTO) 3.1 10^3/uL (1.7-8.2); EOSINOPHILS % (AUTO) 1.3 % (0-6); HEMATOCRIT 28.6 % (36.0-47.0); HEMOGLOBIN 9.7 g/dL (12.0-15.5); LYMPHOCYTES % (AUTO) 18.8 % (13-45); MEAN CORPUSCULAR HEMOGLOBIN 27.6 pg (27.0-33.4); MEAN CORPUSCULAR HGB CONC 33.9 g/dL (32.0-36.0); MEAN CORPUSCULAR VOLUME 81 fl (80-97); MONOCYTES % (AUTO) 9.5 % (3-13); PLATELET COUNT 147 10^3/uL (150-450); RED BLOOD COUNT 3.51 10^6/uL (3.72-5.28); RED CELL DISTRIBUTION WIDTH 14.6 % (11.5-14.0); SEGMENTED NEUTROPHILS % (AUTO) 69.4 % (42-78); TOTAL CELLS COUNTED % (AUTO) 100 %; WHITE BLOOD COUNT 4.5 10^3/uL (4.0-10.5)
[2019-01-18 04:37] LABS: ANION GAP 8 (5-19); BLOOD UREA NITROGEN 12 mg/dL (7-20); CALCIUM 8.6 mg/dL (8.4-10.2); CARBON DIOXIDE 19 mmol/L (22-30); CHLORIDE 109 mmol/L (98-107); GLUCOSE 123 mg/dL (75-110); POTASSIUM 3.5 mmol/L (3.6-5.0); SODIUM 136.1 mmol/L (137-145)
[2019-01-18] MEDS ORDERED: METOPROLOL TARTRATE PF/INJ 5 MG/5 ML SDV IV ONE ×4 (05:16→10:00)
[2019-01-18] MEDS: CHLORPROMAZINE HCL INJ 25 MG/1 ML AMPULE IV PRN (05:28)
[2019-01-18] MEDS: HEPARIN SOD (PORCINE) 5,000 UNIT/ML 1 ML SYRINGE SUBCUT SCH ×3 (05:46→22:34)
[2019-01-18] MEDS ORDERED: CHLORPROMAZINE HCL INJ 25 MG/1 ML AMPULE IV PRN (06:30)
[2019-01-18] MEDS: FAMOTIDINE 20 MG TABLET PO SCH ×2 (09:30→22:34)
[2019-01-18] MEDS ORDERED: METOPROLOL SUCCINATE 50 MG TAB.SR.24H PO SCH (10:00)
[2019-01-18] MEDS ORDERED: METOPROLOL TARTRATE PF/INJ 5 MG/5 ML SDV IV PRN (10:04)
[2019-01-18] MEDS ORDERED: POTASSI CL 20 MEQ/50 ML RIDER 20 MEQ/50 ML RTUPB IV ONE (10:30)
[2019-01-18] MEDS: CYANOCOBALAMIN (VITAMIN B-12) 1,000 MCG TABLET PO SCH (10:40)
[2019-01-18 17:07] LABS: ANION GAP 12 (5-19); BLOOD UREA NITROGEN 12 mg/dL (7-20); CALCIUM 9.4 mg/dL (8.4-10.2); CARBON DIOXIDE 18 mmol/L (22-30); CHLORIDE 106 mmol/L (98-107); GLUCOSE 110 mg/dL (75-110); POTASSIUM 3.9 mmol/L (3.6-5.0); SODIUM 135.9 mmol/L (137-145)
[2019-01-18] MEDS ORDERED: VANCOMYCIN HCL 750 MG in DEXTROSE 5%-WATER 250 ML IV SCH (22:00)
--- NOTE | 2019-01-18 22:45 | EKG REPORT ---
SEVERITY:- OTHERWISE NORMAL ECG - SINUS RHYTHM MINIMAL ST DEPRESSION, LATERAL LEADS : Confirmed by: Moni Alcantara 18-Jan-2019 22:44:29
--- NOTE | 2019-01-18 22:46 | EKG REPORT ---
SEVERITY:- ABNORMAL ECG - SUPRAVENTRICULAR TACHYCARDIA PROBABLE LVH WITH SECONDARY REPOL ABNRM ST DEPRESSION, PROBABLY RATE RELATED : Confirmed by: Moni Alcantara 18-Jan-2019 22:45:31
[2019-01-19 04:02] LABS: ABSOLUTE EOSINOPHILS # (AUTO) 0.2 10^3/uL (0.0-0.6); ABSOLUTE LYMPHOCYTES (AUTO) 1.1 10^3/uL (0.5-4.7); ABSOLUTE MONOCYTES (AUTO) 0.7 10^3/uL (0.1-1.4); ABSOLUTE NEUT (AUTO) 3.7 10^3/uL (1.7-8.2); BASOPHILS % (AUTO) 0.8 % (0-2); EOSINOPHILS % (AUTO) 3.2 % (0-6); HEMATOCRIT 34.1 % (36.0-47.0); HEMOGLOBIN 11.6 g/dL (12.0-15.5); LYMPHOCYTES % (AUTO) 19.9 % (13-45); MEAN CORPUSCULAR HEMOGLOBIN 27.7 pg (27.0-33.4); MEAN CORPUSCULAR HGB CONC 33.9 g/dL (32.0-36.0); MEAN CORPUSCULAR VOLUME 82 fl (80-97); PLATELET COUNT 174 10^3/uL (150-450); RED BLOOD COUNT 4.18 10^6/uL (3.72-5.28); RED CELL DISTRIBUTION WIDTH 14.8 % (11.5-14.0); SEGMENTED NEUTROPHILS % (AUTO) 64.1 % (42-78); TOTAL CELLS COUNTED % (AUTO) 100 %; WHITE BLOOD COUNT 5.7 10^3/uL (4.0-10.5)
[2019-01-19 04:15] LABS: ANION GAP 7 (5-19); BLOOD UREA NITROGEN 10 mg/dL (7-20); CALCIUM 9.2 mg/dL (8.4-10.2); CARBON DIOXIDE 22 mmol/L (22-30); CHLORIDE 109 mmol/L (98-107); GLUCOSE 82 mg/dL (75-110); POTASSIUM 4.1 mmol/L (3.6-5.0); SODIUM 138.2 mmol/L (137-145)
[2019-01-19] MEDS: VANCOMYCIN HCL INJ 500 MG VIAL PO SCH ×5 (05:11→23:37)
[2019-01-19] MEDS: HEPARIN SOD (PORCINE) 5,000 UNIT/ML 1 ML SYRINGE SUBCUT SCH ×3 (05:16→21:28)
[2019-01-19] MEDS: CYANOCOBALAMIN (VITAMIN B-12) 1,000 MCG TABLET PO SCH (09:19)
[2019-01-19] MEDS: POTASSIUM CHLORIDE 10 MEQ CAPSULE.ER PO SCH (09:19)
[2019-01-19] MEDS: METOPROLOL SUCCINATE 50 MG TAB.SR.24H PO SCH (09:20)
[2019-01-19] MEDS: FAMOTIDINE 20 MG TABLET PO SCH ×2 (09:21→21:28)
[2019-01-19] MEDS ORDERED: LISINOPRIL 10 MG TABLET PO SCH (10:00)
[2019-01-19] MEDS ORDERED: LORATADINE 10 MG TABLET PO ONE (15:00)
[2019-01-19] MEDS: LORATADINE 10 MG TABLET PO SCH (20:07)
[2019-01-20] MEDS: VANCOMYCIN HCL INJ 500 MG VIAL PO SCH ×3 (05:23→18:53)
[2019-01-20] MEDS: HEPARIN SOD (PORCINE) 5,000 UNIT/ML 1 ML SYRINGE SUBCUT SCH ×3 (05:23→21:50)
[2019-01-20] MEDS: METOPROLOL SUCCINATE 50 MG TAB.SR.24H PO SCH (09:39)
[2019-01-20] MEDS: CYANOCOBALAMIN (VITAMIN B-12) 1,000 MCG TABLET PO SCH (09:39)
[2019-01-20] MEDS: LORATADINE 10 MG TABLET PO SCH (09:39)
[2019-01-20] MEDS: POTASSIUM CHLORIDE 10 MEQ CAPSULE.ER PO SCH (09:40)
[2019-01-20] MEDS: LISINOPRIL 10 MG TABLET PO SCH (09:40)
[2019-01-20] MEDS: FAMOTIDINE 20 MG TABLET PO SCH ×2 (09:40→21:50)
[2019-01-20] MEDS ORDERED: LORATADINE 10 MG TABLET PO SCH (10:00)
--- NOTE | 2019-01-20 11:01 | PDOC PROGRESS REPORT ---
Subjective Progress Note for:: 01/18/19 Subjective:: The patient remains confused at times. There is occasional hallucination with paranoia. She still has intermittent episodes of SVT that are self-limited. Family reports that the delirium seemed to coincide with the initiation of the antibiotic therapy Reason For Visit: Clostridium difficile colitis Acute delirium PSVT Physical Exam Vital Signs: Temp Pulse Resp BP Pulse Ox 97.7 F 80 27 H 159/71 H 98 01/18/19 12:00 01/18/19 14:00 01/18/19 16:03 01/18/19 16:03 01/18/19 16:03 Intake & Output 01/17/19 01/18/19 01/19/19 06:59 06:59 06:59 Intake Total 1886 1010 Output Total 350 1650 600 Balance 3147 -640 600 Weight 57.2 kg 60.6 kg General appearance: PRESENT: cooperative - But required redirection at times, mild distress, well-developed Head exam: PRESENT: normocephalic Eye exam: PRESENT: conjunctiva pale. ABSENT: scleral icterus Ear exam: PRESENT: normal external ear exam Mouth exam: PRESENT: moist, tongue midline, other - Lips appear slightly puffy but tongue is normal in size. Neck exam: ABSENT: carotid bruit, JVD, lymphadenopathy Respiratory exam: PRESENT: clear to auscultation archie, symmetrical, unlabored. ABSENT: accessory muscle use, rales, rhonchi, wheezes Cardiovascular exam: PRESENT: RRR, +S1, +S2 GI/Abdominal exam: PRESENT: normal bowel sounds, soft, tenderness - The patient reports tenderness. She states that she jumps when people press on her abdomen. It is hard to know if this is pain. The daughter did question the symptoms but the patient in fact clearly told her that this is a chronic issue. Rectal exam: PRESENT: deferred, other - Limited stool production today. Gentrourinary exam: PRESENT: indwelling catheter Extremities exam: ABSENT: pedal edema Musculoskeletal exam: PRESENT: normal inspection Neurological exam: PRESENT: alert, awake, oriented to person, oriented to place, oriented to situation, other - The patient required some redirection. She repeated the same questions several times. She exhibited limited insight. Staff reports that she still exhibits windows of delirium/hallucination. Psychiatric exam: PRESENT: anxious. ABSENT: agitated Focused psych exam: PRESENT: delusional - Intermittently, paranoid - At times (but seems to be improving) Results Laboratory Results: 01/18/19 04:03 01/18/19 04:03 01/18/19 01/18/19 04:03 04:03 WBC 4.5 RBC 3.51 L Hgb 9.7 L Hct 28.6 L MCV 81 MCH 27.6 MCHC 33.9 RDW 14.6 H Plt Count 147 L Seg Neutrophils % 69.4 Lymphocytes % 18.8 Monocytes % 9.5 Eosinophils % 1.3 Basophils % 1.0 Absolute Neutrophils 3.1 Absolute Lymphocytes 0.8 Absolute Monocytes 0.4 Absolute Eosinophils 0.1 Absolute Basophils 0.0 Sodium 136.1 L Potassium 3.5 L Chloride 109 H Carbon Dioxide 19 L Anion Gap 8 BUN 12 Creatinine 1.19 Est GFR ( Amer) 52 L Est GFR (Non-Af Amer) 43 L Glucose 123 H Calcium 8.6 Magnesium 2.1 Impressions: Abdomen/Pelvis CT 01/15/19 23:08 IMPRESSION: Subjective diffuse colonic wall thickening with a more focal area of wall thickening and minor inflammation associated with the sigmoid colon. A few diverticuli are present. Findings could reflect mild acute diverticulitis with underlying nonspecific colitis. No free air or free fluid. Motion artifact grades image quality. Severe scoliosis. Small hepatic cyst. Severe atheromatous change. TECHNICAL DOCUMENTATION: Quality ID # [id number]: Final reports with documentation of one or more dose reduction techniques (e.g., Automated exposure control, adjustment of the mA and/or kV according to patient size, use of iterative reconstruction technique) copyright 2011 [employer]- All Rights Reserved Assessment and Plan - Diagnosis (1) PSVT (paroxysmal supraventricular tachycardia) Is this a current diagnosis for this admission?: Yes Plan: The patient suffered a prolonged episode of supraventricular tachycardia last night. She was diverted. She still has limited episodes this morning. I will increase her metoprolol blood pressure with standing. Her potassium was slightly low and this will be repleted. (2) Acute delirium Is this a current diagnosis for this admission?: Yes Plan: The timing of initiation of antibiotics and the delirium points to an adverse effect of the antibiotics. In October the patient did have a group B Streptococcus infection. The patient is on both intravenous and oral vancomycin therapy. Because there is only Clostridium difficile as a confirmed positive, I will continue the oral vancomycin. This is minimally absorbed in the body. I will discontinue the intravenous vancomycin at this time. (3) Acute kidney injury (nontraumatic) Is this a current diagnosis for this admission?: Yes Plan: The patient's GFR was 35 on admission. It was normal in October. This is likely due to increased losses with diarrhea and decreased intake. The patient was given IV fluids. Her creatinine is improved. Her GFR is still less than 60. We will continue to monitor the patient and administer IV fluids until her intake improves. (4) C. difficile diarrhea Is this a current diagnosis for this admission?: Yes Plan: The patient has confirmed Clostridium difficile in the stool. As noted above I have discontinued the intravenous vancomycin due to possible relation to her delirium. Because of limited absorption of vancomycin administered orally and as it is preferred for Clostridium difficile I will keep the current dosing. The family reports that the stool seems to be decreasing. (5) Hypokalemia due to loss of potassium Is this a current diagnosis for this admission?: Yes Plan: With the increased watery stool the patient is losing potassium. We will monitor the serum potassium level and administer potassium chloride as needed. (6) Hyponatremia Is this a current diagnosis for this admission?: Yes Plan: The serum potassium was low on admission. The etiology is likely related to her acute illness. There has not been any polydipsia. She will be getting normal saline and will monitor her sodium levels. It is slightly improved today. (7) Anemia Qualifiers: Anemia type: other cause Other causes of anemia: other cause, not classified Qualified Code(s): D64.89 - Other specified anemias Is this a current diagnosis for this admission?: Yes Plan: The anemia is most likely delusional. The hemoglobin was in the lower range of normal on admission. This may have been hemoconcentrated. We will continue to monitor. If the anemia worsens we will look for blood loss in the stool and evaluate with iron, B12 and folic acid studies. - Time Time Spent with patient: 25-34 minutes Medications reviewed and adjusted accordingly: Yes
--- NOTE | 2019-01-20 11:16 | PDOC PROGRESS REPORT ---
Subjective Progress Note for:: 01/19/19 Subjective:: Staff reports that the delirium is significantly improved. The family is concerned regarding the current status of lip swelling. They state that the patient's lips are never this big. It is difficult to know if they are markedly more swollen than yesterday or not. The stool is still soft but not watery. Staff reports that the patient was threatening to sign the patient out AMA earlier today. Reason For Visit: Clostridium difficile colitis Paroxysmal SVT Acute delirium Physical Exam Vital Signs: Temp Pulse Resp BP Pulse Ox 98.9 F 89 20 113/80 100 01/19/19 12:00 01/19/19 12:00 01/19/19 12:00 01/19/19 12:00 01/19/19 12:00 Intake & Output 01/18/19 01/19/19 01/20/19 06:59 06:59 06:59 Intake Total 1010 50 Output Total 1650 850 201 Balance -640 -800 -201 Weight 60.6 kg 60.5 kg General appearance: PRESENT: no acute distress, cooperative, well-developed Head exam: PRESENT: atraumatic, normocephalic Eye exam: PRESENT: conjunctiva pale. ABSENT: scleral icterus Ear exam: PRESENT: normal external ear exam Mouth exam: PRESENT: moist, tongue midline, other - There is difficult to tell if the lips are more swollen than yesterday however the family feels that they are. This does not adversely affect her speech nor eating. Neck exam: ABSENT: carotid bruit, lymphadenopathy Respiratory exam: PRESENT: clear to auscultation archie, symmetrical, unlabored. ABSENT: accessory muscle use, rales, rhonchi, wheezes Cardiovascular exam: PRESENT: RRR, +S1, +S2, other - Currently sinus rhythm. Staff reports brief self-limited episodes of SVT last night. GI/Abdominal exam: PRESENT: normal bowel sounds, soft, tenderness - The patient does exhibit an almost reflexive response to palpation in the lower abdomen. Again she reports that this is chronic. It is difficult to know if there is in fact tenderness or not.. ABSENT: distended Rectal exam: PRESENT: deferred Extremities exam: ABSENT: pedal edema Neurological exam: PRESENT: alert, awake, oriented to person, oriented to place, oriented to situation Psychiatric exam: PRESENT: appropriate affect. ABSENT: agitated, anxious Focused psych exam: ABSENT: delusional, restlessness Skin exam: PRESENT: pallor Results Laboratory Results: 01/19/19 03:39 01/19/19 03:39 01/18/19 01/19/19 01/19/19 16:26 03:39 03:39 WBC 5.7 RBC 4.18 Hgb 11.6 L Hct 34.1 L MCV 82 MCH 27.7 MCHC 33.9 RDW 14.8 H Plt Count 174 Seg Neutrophils % 64.1 Lymphocytes % 19.9 Monocytes % 12.0 Eosinophils % 3.2 Basophils % 0.8 Absolute Neutrophils 3.7 Absolute Lymphocytes 1.1 Absolute Monocytes 0.7 Absolute Eosinophils 0.2 Absolute Basophils 0.0 Sodium 135.9 L 138.2 Potassium 3.9 4.1 Chloride 106 109 H Carbon Dioxide 18 L 22 Anion Gap 12 7 BUN 12 10 Creatinine 1.08 1.06 Est GFR ( Amer) 58 L 59 L Est GFR (Non-Af Amer) 48 L 49 L Glucose 110 82 Calcium 9.4 9.2 Magnesium 2.0 Impressions: Abdomen/Pelvis CT 01/15/19 23:08 IMPRESSION: Subjective diffuse colonic wall thickening with a more focal area of wall thickening and minor inflammation associated with the sigmoid colon. A few diverticuli are present. Findings could reflect mild acute diverticulitis with underlying nonspecific colitis. No free air or free fluid. Motion artifact grades image quality. Severe scoliosis. Small hepatic cyst. Severe atheromatous change. TECHNICAL DOCUMENTATION: Quality ID # [id number]: Final reports with documentation of one or more dose reduction techniques (e.g., Automated exposure control, adjustment of the mA and/or kV according to patient size, use of iterative reconstruction technique) copyright 2011 [employer]- All Rights Reserved Assessment and Plan - Diagnosis (1) Adverse reaction to antibiotic Is this a current diagnosis for this admission?: Yes Plan: By discontinuing the intravenous vancomycin the patient's delirium has improved. You cannot completely discount the fact that she has received gentle IV fluids however I believe it was the intravenous vancomycin causing the acute delirium. As noted above we will continue the oral vancomycin due to its limited absorption and effectiveness with Clostridium difficile. Because of the potential for lip swelling to be related to the vancomycin I did add antihistamine therapy. If there is any ongoing lip swelling then we will need to discontinue the vancomycin and institute different antimicrobial therapy. (2) PSVT (paroxysmal supraventricular tachycardia) Is this a current diagnosis for this admission?: Yes Plan: Appears to be controlled with the current metoprolol dose. (3) C. difficile diarrhea Is this a current diagnosis for this admission?: Yes Plan: As noted above the stools are improving. The oral vancomycin will be continued. (4) Acute delirium Is this a current diagnosis for this admission?: Yes Plan: The patient is much improved with the discontinuance of the intravenous vancomycin. She mostly had an adverse reaction. We will continue the oral vancomycin due to its effectiveness and limited absorption. (5) Acute kidney injury (nontraumatic) Is this a current diagnosis for this admission?: Yes Plan: Between the IV fluid and the patient's improved intake her kidney function is improving as well. Continue to monitor renal function. (6) Hypokalemia due to loss of potassium Is this a current diagnosis for this admission?: Yes Plan: The serum potassium is back to normal. Continue to monitor. It should stabilize with the decreased diarrhea. (7) Hyponatremia Is this a current diagnosis for this admission?: Yes Plan: Improved from yesterday. Continue to monitor. (8) Anemia Qualifiers: Anemia type: other cause Other causes of anemia: other cause, not classified Qualified Code(s): D64.89 - Other specified anemias Is this a current diagnosis for this admission?: Yes Plan: Hemoglobin appears stable. There does not appear to be an obvious source of blood loss. We will continue to monitor. Consider workup if the hemoglobin drops or workup as an outpatient. - Time Time Spent with patient: 25-34 minutes Medications reviewed and adjusted accordingly: Yes - Plan Summary Plan Summary: With the improvement in the patient's condition we will be downgrading the patient to IMCU. We will continue telemetry because of the recent episodes of paroxysmal supraventricular tachycardia.
[2019-01-20] MEDS ORDERED: DILTIAZEM HCL INJ 25 MG/5 ML VIAL IV PRN (12:05)
--- NOTE | 2019-01-20 17:02 | PDOC PROGRESS REPORT ---
Subjective Progress Note for:: 01/20/19 Subjective:: 89 y.o. F with PMH HTN and arthritis presented to [facility] with diarrhea (+) c.diff. The patient developed SVT while inpatient, started on metoprolol. Dosage was increased from 50 mg to 100 mg daily yesterday. Patient was seen this morning on rounds, she is resting comfortably in bed eating Oreos. The patient has no complaints this morning. She states that her bowel movements are now formed stool. When looking at telemetry strips, it appears that the patient still is experiencing episodes of SVT, which are increasing to 140s. Discussed the patient's case with cardiology. Reviewed EKGs with Dr. Estrella. Decision made to switch patient from metoprolol to diltiaz em, first dose to be administered tonight. Will monitor overnight on telemetry. If patient tolerates then will discharge home tomorrow. Reason For Visit: DIARRHEA WITH HYPOVOLEMIA Physical Exam Vital Signs: Temp Pulse Resp BP Pulse Ox 98.0 F 90 18 150/66 H 99 01/20/19 13:02 01/20/19 14:00 01/20/19 13:02 01/20/19 13:02 01/20/19 13:02 Intake & Output 01/19/19 01/20/19 01/21/19 06:59 06:59 06:59 Intake Total 50 300 Output Total 850 201 Balance -800 -201 300 Weight 60.5 kg 62.6 kg General appearance: PRESENT: no acute distress, well-developed, well-nourished Head exam: PRESENT: atraumatic, normocephalic Eye exam: PRESENT: conjunctiva pink, EOMI, PERRLA. ABSENT: scleral icterus Ear exam: PRESENT: normal external ear exam Mouth exam: PRESENT: moist, tongue midline Neck exam: PRESENT: JVD. ABSENT: carotid bruit, lymphadenopathy, thyromegaly Respiratory exam: PRESENT: clear to auscultation archie. ABSENT: rales, rhonchi, wheezes Cardiovascular exam: PRESENT: irregular rhythm, RRR. ABSENT: diastolic murmur, rubs, systolic murmur Pulses: PRESENT: normal radial pulses, normal dorsalis pedis pul Vascular exam: PRESENT: normal capillary refill GI/Abdominal exam: PRESENT: normal bowel sounds, soft. ABSENT: distended, guarding, mass, organolmegaly, rebound, tenderness Rectal exam: PRESENT: deferred Extremities exam: PRESENT: full ROM. ABSENT: calf tenderness, clubbing, pedal edema Neurological exam: PRESENT: alert, awake, oriented to person, oriented to place, oriented to time, oriented to situation Psychiatric exam: PRESENT: appropriate affect, normal mood. ABSENT: homicidal ideation, suicidal ideation Skin exam: PRESENT: dry, intact, warm. ABSENT: cyanosis, rash Results Laboratory Results: 01/19/19 03:39 01/19/19 03:39 01/15/19 23:15 Blood Blood Culture - Final Staphylococcus Hominis Impressions: Abdomen/Pelvis CT 01/15/19 23:08 IMPRESSION: Subjective diffuse colonic wall thickening with a more focal area of wall thickening and minor inflammation associated with the sigmoid colon. A few diverticuli are present. Findings could reflect mild acute diverticulitis with underlying nonspecific colitis. No free air or free fluid. Motion artifact grades image quality. Severe scoliosis. Small hepatic cyst. Severe atheromatous change. TECHNICAL DOCUMENTATION: Quality ID # 436: Final reports with documentation of one or more dose reduction techniques (e.g., Automated exposure control, adjustment of the mA and/or kV according to patient size, use of iterative reconstruction technique) copyright 2011 [employer]- All Rights Reserved Status: Imported from PACS Assessment and Plan - Diagnosis (1) C. difficile diarrhea Is this a current diagnosis for this admission?: Yes Plan: First occurrence Diagnosed with C. difficile during this hospitalization Diarrhea present prior to admission Continue p.o. vancomycin (2) PSVT (paroxysmal supraventricular tachycardia) Is this a current diagnosis for this admission?: Yes Plan: Seen on EKG and telemetry tracings Patient initially shocked and started on p.o. metoprolol Relatively good control with metoprolol, but patient still having periods of PSVT, HR 140s Discussed with Dr. Mijares Switch from metoprolol to diltiazem - Time Time Spent with patient: 15-24 minutes Medications reviewed and adjusted accordingly: Yes Anticipated discharge: Home - Inpatient Certification Based on my medical assessment, after consideration of the patient's comorbidities, presenting symptoms, or acuity I expect that the services needed warrant INPATIENT care.: Yes I certify that my determination is in accordance with my understanding of Medicare's requirements for reasonable and necessary INPATIENT services [42 CFR 412.3e].: Yes Medical Necessity: Risk of Complication if Not Cared For in Hospital
[2019-01-20] MEDS: DILTIAZEM HCL 120 MG CAP.SR.24H PO SCH (21:51)
[2019-01-21] MEDS: VANCOMYCIN HCL INJ 500 MG VIAL PO SCH ×2 (00:04→07:08)
[2019-01-21] MEDS: DIAZEPAM INJ 10 MG/2 ML DISP.SYRIN IV PRN ×2 (01:10→05:26)
[2019-01-21] MEDS: HEPARIN SOD (PORCINE) 5,000 UNIT/ML 1 ML SYRINGE SUBCUT SCH (05:47)
[2019-01-21] MEDS: FAMOTIDINE 20 MG TABLET PO SCH (09:30)
[2019-01-21] MEDS: LORATADINE 10 MG TABLET PO SCH (09:30)
[2019-01-21] MEDS: POTASSIUM CHLORIDE 10 MEQ CAPSULE.ER PO SCH (09:30)
[2019-01-21] MEDS: DILTIAZEM HCL 120 MG CAP.SR.24H PO SCH (09:30)
[2019-01-21] MEDS: LISINOPRIL 10 MG TABLET PO SCH (09:30)
[2019-01-21] MEDS: CYANOCOBALAMIN (VITAMIN B-12) 1,000 MCG TABLET PO SCH (09:30)
[2019-01-21 11:53] VITALS: BP 154/71
--- NOTE | 2019-01-28 11:21 | PDOC DISCHARGE SUMMARY ---
General - Admit/Disc Date/PCP Admission Date/Primary Care Provider: 01/15/19 23:46 ISAAK CUMMINGS MD Discharge Date: 01/21/19 - Discharge Diagnosis (1) C. difficile diarrhea Is this a current diagnosis for this admission?: Yes (2) PSVT (paroxysmal supraventricular tachycardia) Is this a current diagnosis for this admission?: Yes - Additional Information Resuscitation Status: Full Code Discharge Diet: As Tolerated Discharge Activity: Activity As Tolerated Prescriptions: Diltiazem HCl [Cardizem Cd 120 mg Capsule] 120 mg PO Q12 #60 cap.sr.24h Vancomycin HCl [Vancocin Inj 500 mg Vial] 125 mg PO Q6 #20 vial Home Medications: Cyanocobalamin (Vitamin B-12) [Vitamin B-12] 1,000 mcg PO DAILY 01/16/19 Diph,Pertuss(Acell),Tet Vac/Pf [Boostrix Vaccine 0.5 ml Syringe] 0.5 ml IM .RECEIVED 11/15/18 MDD 11/15/18 01/16/19 Flu Vacc [id number](65Yr Up)/Pf [Fluzone High-Dose Syr] 180 mcg IM .RECEIVED 08/31/18 MDD 08/31/18 01/16/19 Flynn-3/Dha/Epa/Fish Oil [Fish Oil 1,000 mg Softgel] 1,000 mg PO DAILY 01/16/19 Diltiazem HCl [Cardizem Cd 120 mg Capsule] 120 mg PO Q12 #60 cap.sr.24h 01/21/19 Famotidine [Pepcid 20 mg Tablet] 20 mg PO Q12 tablet 01/21/19 Lisinopril [Prinivil 10 mg Tablet] 10 mg PO DAILY tablet 01/21/19 Loratadine [Claritin 10 mg Tablet] 10 mg PO DAILY tablet 01/21/19 Temazepam [Restoril 7.5 mg Capsule] 7.5 mg PO HSP PRN capsule 01/21/19 Vancomycin HCl [Vancocin Inj 500 mg Vial] 125 mg PO Q6 #20 vial 01/21/19 History of Present Illness History of Present Illness: KRYSTLE ESTRADA is a 89 year old female who presented to the emergency with a 2-day history of progressively worsening diarrhea. Patient is not the best historian due to mild dementia but is capable of providing reasonable information. She states that for the last 2 days she has experienced multiple daily large watery diarrhea stools that have become more frequent and more copious. The diarrhea has been accompanied by moderate, diffuse, nonradiating, intermittent, lower abdominal crampy pain, generalized weakness and orthostatic syncope. She denies prior similar episodes and has not identified any aggravating or ameliorating factors for her diarrhea. She admits that she was recently hospitalized and treated with IV and subsequently oral antibiotics for a urinary tract infection. In the emergency room she was found to be tachycardic and tested positive for C. difficile enterocolitis on a stool specimen. She was additionally noted to have acute kidney injury. With these findings patient was subsequently admitted to the hospital for further evaluation treatment. Hospital Course Hospital Course: 89 y.o. F with PMH HTN and arthritis presented to [facility] with diarrhea (+) c.diff. The patient reported she was recently hospitalized for a UTI and was treated with IV/PO antibiotics. The patient was admitted to [facility] and started on PO Vancomycin. Unfortunately, the patient developed SVT while inpatient. Her HR increased to 160 and she became HYPOtnesive. She was shocked twice per ACLS protocol and her HR returned to NSR. She was briefly in the ICU following this event, mostly for monitoring. The patient was started on metoprolol 50mg PO daily for HR control. She continued to have brief episodes of SVT, so her dosage was increased from 50 mg to 100 mg daily. Despite this increase in metoprolol, her HR remained only moderately controlled. Discussed her case with Cariologist, Dr. Estrella, who reviewed her records and EKGs. He recommended switching from metoprolol to Diltiazem. HR control was achieved with the new medication. By hospital day #7 the patient's HR was controlled and she reported having soft/formed stools. Her vital signs were all stable so she was deemed safe for discharge. Since this was the patient's first occurrence of c.diff she was told to continue taking PO Vancomycin for a total of 10 days of treatment. For any further information regarding this patient's hospitalization, please refer to the EMR. Physical Exam Vital Signs: Temp Pulse Resp BP Pulse Ox 97.9 F 66 16 154/71 H 100 01/21/19 11:52 01/21/19 11:52 01/21/19 11:52 01/21/19 11:52 01/21/19 11:52 Results Laboratory Results: 01/19/19 03:39 01/19/19 03:39 Impressions: Abdomen/Pelvis CT 01/15/19 23:08 IMPRESSION: Subjective diffuse colonic wall thickening with a more focal area of wall thickening and minor inflammation associated with the sigmoid colon. A few diverticuli are present. Findings could reflect mild acute diverticulitis with underlying nonspecific colitis. No free air or free fluid. Motion artifact grades image quality. Severe scoliosis. Small hepatic cyst. Severe atheromatous change. TECHNICAL DOCUMENTATION: Quality ID # [id number]: Final reports with documentation of one or more dose reduction techniques (e.g., Automated exposure control, adjustment of the mA and/or kV according to patient size, use of iterative reconstruction technique) copyright 2010 [employer]- All Rights Reserved Status: Imported from PACS Qualifiers - * PATIENT BEING DISCHARGED WITH ANY OF THE FOLLOWING DIAGNOSIS: No
== END 2019-01-21 12:48 | disposition home or self-care (01) | DRG 372 ==
LOC: ER 17:03 → EH 23:46 → 4W 01-16 02:00 → ICU 01-18 00:04 → 3W 01-19 17:03
PROVIDERS: ADMIT Emergency Medicine; ATTEND Emergency Medicine
PROC: 5A2204Z Restoration of Cardiac Rhythm, Single (ICD-10-PCS; principal; 2019-01-18)
DX: A04.72 Enterocolitis due to Clostridium difficile, not specified as recurrent (principal); N17.9 Acute kidney failure, unspecified; I47.1 Supraventricular tachycardia; E87.1 Hypo-osmolality and hyponatremia; F03.90 Unspecified dementia, unspecified severity, without behavioral disturbance, psychotic disturbance, mood disturbance, and anxiety; T36.8X5A Adverse effect of other systemic antibiotics, initial encounter; R41.0 Disorientation, unspecified; I10 Essential (primary) hypertension; E87.6 Hypokalemia; I48.91 Unspecified atrial fibrillation; E86.0 Dehydration; Y92.230 Patient room in hospital as the place of occurrence of the external cause; M19.90 Unspecified osteoarthritis, unspecified site; D64.89 Other specified anemias; Z90.49 Acquired absence of other specified parts of digestive tract; Z82.49 Family history of ischemic heart disease and other diseases of the circulatory system; Z88.0 Allergy status to penicillin
CPT/HCPCS: 36415; 74177; 80048; 80053; 83690; 83735; 84439; 84443; 84481; 85025; 87040; 87077; 87186; 87493; 93005; 93010; 93306; 96361; 96365; 96375; 99284; J1644; J2405; J3230; J3360; J3370; J3475; J3480; J3490; J7030; J7040; J7120